=== PATIENT | female | born 1950 | race Caucasian/White ===

== ENCOUNTER 2020-05-09 20:06 | Emergency (ER) | payer MEDICARE, OTHER, SELFPAY ==
[2020-05-09 20:11] VITALS: BP 197/92; PULSE 83; RESP 16; TEMP 36.7; O2SAT 98
[2020-05-09] MEDS: TET,DIPH,PERTUSS(ACELL),VAC/PF 0.5 ML SYRINGE IM (20:41)
[2020-05-09] MEDS: LIDO 1%/SOD BICARB 8.4% (10ML) 10 ML SYRINGE INJ (20:42)
[2020-05-09] MEDS: BACITRACIN OINT 0.9 GM PCKT 1 APPLIC TOP (20:42)
[2020-05-09 21:24] VITALS: BP 139/88; PULSE 80; RESP 15; O2SAT 97
--- NOTE | 2020-05-09 21:55 | ED_ITS ---
HPI - Skin/Abscess/Foreign Bdy <HILLARY Swift - Last Filed: 05/09/20 22:04> General Chief complaint: Skin/Abscess/Foreign Body Stated complaint: cut fingers left hand Time Seen by Provider: 05/09/20 20:13 Source: patient Mode of arrival: Ambulatory Limitations: no limitations History of Present Illness HPI narrative: This is a 69-year-old female, nonsmoker, who has history of migr elsi headache, Crohn's presents to ED with significant other with chief complain of non dominant hand, left, distal finger pad of index finger deep and long laceration from metal part of bottle washer. Patient reports she has intact sensation and is able to move affected fingers without difficulty but reports active bleeding. Patient also has small laceration on 3rd finger which about 1 cm which superficial without active bleeding. Patient is unsure of last tetanus immunization. Related Data Home Medications Medication Instructions Recorded Confirmed desipramine 50 mg PO HS #0 10/29/17 mesalamine [Lialda] 2 gm PO BID #0 10/29/17 naproxen sodium [Aleve] 2 tab PO QDAYP PRN #0 10/29/17 cholecalciferol (vitamin D3) 1,000 unit PO QDAY #0 11/13/17 omega 5-kck-ccz-fish oil [Fish Oil] 1,000 units PO #0 11/13/17 Allergies Allergy/AdvReac Type Severity Reaction Status Date / Time Sulfa (Sulfonamide AdvReac Severe MAKES ME Verified 05/09/20 20:14 Antibiotics) SUPER [SULFA (SULFONAMIDE HYPER ANTIBIOTICS)] Review of Systems <HILLARY Swift - Last Filed: 05/09/20 22:04> Review of Systems Narrative: General: Denies fever, chills, fatigue, malaise, sweats. HEENT: Denies sinus pain, ear pain, sore throat, difficulty swallowing, dizziness. Respiratory: Denies dyspnea, cough, wheezing, hemoptysis, sputum. Cardiovascular: Denies chest pain, palpitations, orthopnea, edema. Gastrointestinal: Denies nausea, vomiting, abdominal pain, diarrhea, constipation, melena. : Denies dysuria, frequency, incontinence, hematuria, urinary retention. Musculoskeletal: Denies weakness, joint pain or bony pain. Skin: See HPI Neurologic: Denies weakness, headache, numbness, change in speech, confusion, seizures, incoordination. Psychiatric: No concerning psychosocial issues. 12-point review of systems is negative except for those stated above. Patient History <HILLARY Swift - Last Filed: 05/09/20 22:04> Medical History Crohn's colitis (Acute) Migraine headache (Acute) Social History Smoking Status: Never smoker Smoking Status: Never smoker alcohol intake frequency: 0-2 drinks per day Substance Use Type: does not use Exam <HILLARY Swift - Last Filed: 05/09/20 22:04> Narrative Exam Narrative: General appearance: well developed, well nourished, in no acute distress. Head: normocephalic, atraumatic, no scalp lesions, non-tender. ENT: Hearing grossly intact. Airway patent. Neck/Thyroid: neck supple, full range of motion, no visible masses or meningeal signs. No JVD, non-tender without lymphadenopathy. Skin: 3 cm deep vertical laceration with active bleeding on left index finger pad. Superficial 1 cm laceration to middle finger. Warm and dry and appropriate color for ethnicity. Heart: no clubbing, no cyanosis, no edema. Lungs: Breathing even and unlabored. No stridor. No accessory muscles used. Able to speak in full sentences. Chest: normal shape and expansion. Abdomen: non-obese, non-distended. Neurologic: alert and oriented. Cognitive exam, [employer] and PNS grossly intact on informal exam. Psych: good eye contact, normal affect. Initial Vital Signs Initial Vital Signs: Vital Signs Temperature 98.0 F 05/09/20 20:11 Pulse Rate 83 05/09/20 20:11 Respiratory Rate 16 05/09/20 20:11 Blood Pressure 197/92 H 05/09/20 20:11 Pulse Oximetry 98 05/09/20 20:11 <Cooper Tucker DO - Last Filed: 05/10/20 02:39> Initial Vital Signs Initial Vital Signs: Vital Signs Temperature 98.0 F 05/09/20 20:11 Pulse Rate 83 05/09/20 20:11 Respiratory Rate 16 05/09/20 20:11 Blood Pressure 197/92 H 05/09/20 20:11 Pulse Oximetry 98 05/09/20 20:11 Procedures <HILLARY Swift - Last Filed: 05/09/20 22:04> Laceration Repair Laceration 1: Site: hand Side (If applicable): left (index finger pad) Size (cm): 3 Description: linear Depth: simple, single layer Local Anesthetic: lidocaine 1% and with bicarb Amount of anesthesia used (mL): 2 Pre-repair: wound explored Skin layer closed with: nylon Size (cm): 5-0 Number of sutures: 4 Technique: simple, interrupted Scores <HILLARY Swift - Last Filed: 05/09/20 22:04> GCS Cit[place]ali coma scale eye opening: Spontaneous [place] coma scale verbal response: Orientated [place] coma scale motor response: Obey commands [place] coma scale total score: 15 Course <HILLARY Swift - Last Filed: 05/09/20 22:04> Orders Ordered: Discontinued Medications Bacitracin (Bacitracin) 1 applic TOP NOW ONE Stop: 05/09/20 20:29 Last Admin: 05/09/20 20:42 Dose: 1 applic Documented by: KELL Bacitracin (Bacitracin) 1 applic TOP NOW ONE Stop: 05/09/20 21:00 Diphtheria/Tetanus/Acell Pertussis (Adacel) 0.5 ml IM .ONCE ONE Stop: 05/09/20 20:16 Last Admin: 05/09/20 20:41 Dose: 0.5 ml Documented by: KELL Lidocaine/Sodium Bicarbonate (Buffered Lidocaine 10 Ml Syr) 10 ml INJ NOW ONE Stop: 05/09/20 20:29 Last Admin: 05/09/20 20:42 Dose: 10 ml Documented by: KELL Vital Signs Vital signs: Vital Signs - 8 hr 05/09/20 20:11 05/09/20 21:24 Temperature 98.0 F Pulse Rate 83 80 Respiratory Rate 16 15 Blood Pressure 197/92 H 139/88 Pulse Oximetry 98 97 <Cooper Tucker DO - Last Filed: 05/10/20 02:39> Orders Ordered: Discontinued Medications Bacitracin (Bacitracin) 1 applic TOP NOW ONE Stop: 05/09/20 20:29 Last Admin: 05/09/20 20:42 Dose: 1 applic Documented by: KELL Bacitracin (Bacitracin) 1 applic TOP NOW ONE Stop: 05/09/20 21:00 Diphtheria/Tetanus/Acell Pertussis (Adacel) 0.5 ml IM .ONCE ONE Stop: 05/09/20 20:16 Last Admin: 05/09/20 20:41 Dose: 0.5 ml Documented by: KELL Lidocaine/Sodium Bicarbonate (Buffered Lidocaine 10 Ml Syr) 10 ml INJ NOW ONE Stop: 05/09/20 20:29 Last Admin: 05/09/20 20:42 Dose: 10 ml Documented by: KELL Vital Signs Vital signs: Vital Signs - 8 hr 05/09/20 20:11 05/09/20 21:24 Temperature 98.0 F Pulse Rate 83 80 Respiratory Rate 16 15 Blood Pressure 197/92 H 139/88 Pulse Oximetry 98 97 MDM - Skin/Abscess/Foreign Bdy <HILLARY Swift - Last Filed: 05/09/20 22:04> Differential Diagnosis Differential diagnosis: Likely other (Laceration) Medical Records Attestation: I reviewed the patient's medical records. MDM Narrative Medical decision making narrative: Non dominant hand left index finger pad laceration was repaired with 4 sutures. Please see procedural note. Physical exam is not consistent with fracture. She has intact sensation, is able to move finger against resistance. Brisk cap refill. No obvious foreign body appreciated. Tdap vaccination has been updated today. Discussed home wound care, wound recheck in 2 days and suture removal in 7-10 days discussed with patient and she verbalized understanding in agreement with treatment plan. Discharge Plan Departure Patient Disposition: Home Clinical Impression: Finger laceration Qualifiers: Encounter type: initial encounter Finger: index finger Damage to nail status: without damage Foreign body presence: without foreign body Laterality: left Qualified Code(s): S61.211A - Laceration without foreign body of left index finger without damage to nail, initial encounter Discharge Date/Time: 05/09/20 21:25 Instructions: DI for Laceration Repair Activity Restrictions/Additional Instructions: You have been diagnosed with [finger laceration on index and middle finger from a metal of bottle washer. Index finger laceration was repaired with 4 sutures. Tetanus immunization has been updated today.]. What to do: *Take your medications as directed. You can take dwjg-wot-hmccxuk Tylenol and or Motrin as needed for discomfort. Please do not get your wound soaked in the water until suture removal. Keep your dressing intact for next 24 hrs. After then, you could remove your dressing, wash with soap and water. Pat dry with clean paper towel and dress it with antibiotic ointment. You can change dressing as needed and daily. Please monitor for signs and symptoms for infection such as increasing redness, swelling, warmth, pain, fever, purulent discharge. If this occurs, please return to ED or follow up with your primary care physician since your wound may be gotten infected. Please follow up with your primary care provider in 2-3 days for recheck wound. Your suture should be removed [ 7-10 ] days. This can be done by your primary provider, walk-in clinic or here in ED. Please keep your wound clean, dry and intact all times. Prescriptions: No Action desipramine 50 MG tablet 50 mg PO HS Qty: 0 RF: 0 mesalamine [Lialda] 1.2 GM tablet,delayed release (DR/EC) 2 gm PO BID Qty: 0 RF: 0 naproxen sodium [Aleve] 220 MG tablet 2 tab PO QDAYP PRNQty: 0 RF: 0 omega 9-bdr-xli-fish oil [Fish Oil] 1,000 MG capsule 1,000 units PO Qty: 0 RF: 0 cholecalciferol (vitamin D3) 5,000 UNIT capsule 1,000 unit PO QDAY Qty: 0 RF: 0 Referrals: Anthony Alonso DO [Non-Staff] - <Cooper Tucker DO - Last Filed: 05/10/20 02:39> Cosign ED Attending Hananeature Attestation: I was immediately available in the department for consultation. This documentation has been reviewed and I agree with assessment and plan. Supervised by Cooper Tucker DO
== END 2020-05-09 21:25 | disposition home or self-care (01) ==
PROVIDERS: Emergency Provider Nurse Practitioner Family; Family Provider Family Medicine; PCP Family Medicine
DX: S61.211A Laceration without foreign body of left index finger without damage to nail, initial encounter (principal); W26.8XXA Contact with other sharp object(s), not elsewhere classified, initial encounter; Z23 Encounter for immunization
CPT/HCPCS: 12002; 90471; 99283; 90715

== ENCOUNTER 2021-06-09 01:39 | Observation (INO) | payer MEDICARE, OTHER, SELFPAY ==
[2021-06-09] VITALS (12 sets, daily range): BP systolic 137–176; BP diastolic 76–95; PULSE 69–83; RESP 15–25; TEMP 35.9–36.6; O2SAT 94–99; BMI 39.4; BMI 39.3
--- NOTE | 2021-06-09 01:55 | DI.CT.S_ITS ---
PROCEDURE: CT HEAD/BRAIN WO CON INDICATIONS: right sided tingling now resolved TECHNIQUE: Noncontrast 4.5 mm thick angled axial sections acquired from the foramen magnum to the vertex, with coronal and sagittal reformats. For radiation dose reduction, the following was used: automated exposure control, adjustment of mA and/or kV according to patient size. COMPARISON: None. FINDINGS: Image quality: Excellent. CSF spaces: Basal cisterns are patent. No extra-axial fluid collections. The ventricles are symmetric in size and shape. Brain: No intracranial bleeds or masses. There is cerebral volume loss for age, with resultant ventricular and sulcal prominence. There are periventricular and deep white matter chronic small vessel ischemic changes. There is intracranial internal carotid artery atherosclerosis. Skull and face: Calvarium and visualized facial bones appear intact, without suspicious lesions. Sinuses: Visualized sinuses and mastoids are clear. IMPRESSION: 1. No acute intracranial process. 2. Moderate atrophy and chronic microvascular ischemic changes. The above findings are concordant with preliminary report. Dictated by: Rachel Whitlock M.D. on 06/09/2021 at 7:44 Approved by: Rachel Whitlock M.D. on 06/09/2021 at 7:45
[2021-06-09 02:14] LABS: Add Manual Diff / Slide Review NO; Basophils Absolute Auto 100 /uL (0-100); Basophils Percent Auto 0.7 % (0-2); Eosinophils Absolute Auto 100 /uL (0-450); Eosinophils Percent Auto 1.3 % (2-4); Hematocrit 42.5 % (36-46); Hemoglobin 13.9 g/dL (12.0-16.0); Lymphocytes Absolute Auto 1900 /uL (1100-4500); Lymphocytes Percent Auto 17.4 % (25-40); Mean Corpuscular HGB Conc 32.6 % (30-36); Mean Corpuscular Hemoglobin 27.1 PG (26-34); Mean Corpuscular Volume 82.9 fL (80-100); Monocytes Absolute Auto 700 /uL (0-900); Monocytes Percent Auto 6.7 % (3-14); Neutrophils Absolute Auto 8200 /uL (1500-7000); Neutrophils Percent Auto 73.9 % (50-75); Platelet Count 264 X10^3/uL (150-400); Red Blood Cell Count 5.12 X10^6/uL (4.0-5.2); Red Cell Distribution Width 15.5 % (11.6-14.8); White Blood Cell Count 11.1 X10^3/uL (4.5-11.0)
[2021-06-09 02:26] LABS: Alanine Aminotransferase 17 IU/L (<35); Albumin 4.2 g/dL (3.5-5.0); Albumin Globulin Ratio 1.6 (1.0-2.8); Alkaline Phosphatase 142 U/L (38-126); Aspartate Aminotransferase 19 IU/L (14-36); BUN Creatinine Ratio 33.3 (6-22); Bilirubin Total 0.3 mg/dL (0.2-1.3); Blood Urea Nitrogen 18 mg/dL (7-17); Calcium 9.4 mg/dL (8.4-10.2); Carbon Dioxide 27 mmol/L (22-32); Chloride 107 mmol/L (98-107); Creatine Kinase 61 U/L (30-135); Estimated Glomerular Filt Rate > 60.0 mL/min (>60); Globulin 2.6 g/dL (1.7-4.1); Glucose 98 mg/dL (80-110); HEMOLYSIS < 15 (0-50); Potassium 3.8 mmol/L (3.4-5.1); Sodium 141 mmol/L (137-145); Total Protein 6.8 g/dL (6.3-8.2)
[2021-06-09 02:38] LABS: Troponin I < 0.012 ng/mL (0.01-0.034)
--- NOTE | 2021-06-09 02:58 | ED_ITS ---
HPI - Neuro Symptoms/Deficit General Chief Complaint: Neuro Symptoms/Deficit Stated Complaint: numbness/tingling right side/head/ arm Time Seen by Provider: 06/09/21 01:48 Source: patient and family Mode of arrival: Ambulatory Limitations: no limitations History of Present Illness HPI Narrative: Patient is a 70-year-old female history of migraine headache in Crohn's disease presenting today with 2 episodes of right-sided numbness and tingling. She said she had a 1st episode will getting her hair cut around noon today. It lasted for about 30 minutes. It then went away this evening. She was sitting watching TV full thing her computer and getting ready to go to bed when she noticed she again had right-sided numbness and tingling. She says both times it starts on her face then goes down including her arm. She does not have any weakness. No visual changes. She denies headache. She has says this is ce rtainly not typical of her migraines. She has no chest pain or palpitations. No difficulty walking. Symptoms have now resolved. No previous history of TIAs. On Anticoagulants: No Related Data Home Medications Medication Instructions Recorded Confirmed desipramine 50 mg tablet 50 mg PO HS #0 10/29/17 mesalamine 1.2 gram tablet,delayed 2 gm PO BID #0 10/29/17 release (Lialda) naproxen sodium 220 mg tablet 2 tab PO QDAYP PRN #0 10/29/17 (Aleve) cholecalciferol (vitamin D3) 125 1,000 unit PO QDAY #0 11/13/17 mcg (5,000 unit) capsule omega 5-dus-jfj-fish oil 1,000 mg 1,000 units PO #0 11/13/17 (120 mg-180 mg) capsule (Fish Oil) Allergies Allergy/AdvReac Type Severity Reaction Status Date / Time Sulfa (Sulfonamide AdvReac Severe MAKES ME Verified 05/09/20 20:14 Antibiotics) SUPER [SULFA (SULFONAMIDE HYPER ANTIBIOTICS)] Review of Systems Review of Systems Narrative: GENERAL: Denies chills, fatigue, malaise, fever, sweats, travel HEENT: Denies sinus pain, ear pain, sore throat, difficulty swallowing, neck pain RESPIRATORY: Denies dyspnea, cough, wheezing, hemoptysis, sputum. CARDIOVASCULAR: Denies chest pain, palpitations, orthopnea, edema GASTROINTESTINAL: Denies nausea, vomiting, abdominal pain, diarrhea, constipat ion, melena. : Denies dysuria, frequency, incontinence, hematuria, urinary retention, flank pain. MUSCULOSKELETAL: Denies weakness, joint pain, or bony pain SKIN: No rash, no erythema, no pruritus NEUROLOGIC: See HPI PSYCHIATRIC: No concerning psychosocial issues. 12 point review of systems is negative except for those stated above and HPI Hematologic/Lymphatic On Anticoagulants: No Patient History Medical History (Updated 06/09/21 @ 03:24 by Kimberley Tarango DO) Crohn's colitis Migraine headache Social History Smoking Status: Never smoker Smoking Status: Never smoker alcohol intake frequency: a few times a week Substance Use Type: does not use Exam Initial Vital Signs Initial Vital Signs: Vital Signs Temperature 98 F 06/09/21 01:45 Pulse Rate 83 06/09/21 01:45 Respiratory Rate 15 06/09/21 01:45 Blood Pressure 151/88 H 06/09/21 01:45 Pulse Oximetry 97 06/09/21 01:45 GENERAL: Alert well-appearing 70-year-old female in no acute distress. HEENT: Head atraumatic,EOMI, pupils reactive, face symmetric, moist mucous membr anes CARDIOVASCULAR: Regular rate and rhythm without murmurs, rubs or gallops. RESPIRATORY: Breath sounds equal bilaterally, no wheezes rales or rhonchi. ABDOMEN: Soft, nontender. Normoactive bowel sounds all 4 quadrants. No guarding or rebound. EXTREMITIES: Normal range of motion, no clubbing or edema. Neurovascularly intact NEUROLOGICAL: Alert and oriented x4.Normal gait and speech. Cranial nerves II through XII grossly intact. Good fkhybe-zv-bcnk, good alkn-ms-jyor, strength equal bilaterally, no dysarthria or aphasia, sensation in tact to soft touch bilaterally, no visual changes, no facial droop SKIN: Warm, dry, no laceration, no petechiae, no rashes or lesions. Scores NIH Stroke Scale Level of Conciousness: Alert, keenly responsive Ask month/age: Answers both questions correctly. Open/close eyes, close hand: Performs both tasks correctly Best gaze horizontal: Normal Visual olivera: No visual loss Facial palsy: Normal symetrical movement Left arm drift: No drift for full 10 sec Right arm drift: No drift for full 10 sec Left leg drift: No drift for full 5 sec Right leg drift: No drift for full 5 sec Limb ataxia: Absent Sensory on face/arms/legs: Normal, no sensory loss Best language: No aphasia, normal Dysarthria: Normal Extinction or inattention: No abnormality Total NIH Stroke scale score: 0 Course Orders Ordered: ED Orders 06/09/21 01:55 CT head/brain wo con Stat EKG-12 Lead Stat 06/09/21 02:05 Complete Blood Count AUTO DIFF Stat Comprehensive Metabolic Panel Stat Troponin & CK Cardiac Panel Stat 06/09/21 03:15 COVID19 - ADMIT (SOCIAL WORK THERAPIST swab/PCR) Stat Acetaminophen (Acetaminophen 325 Mg Tablet) 650 mg PO Q6HR PRN PRN Reason: Fever/Mild Pain (1-3) Aspirin (Aspirin Ec 81 Mg Tablet) 81 mg PO DAILY LESLI Atorvastatin Calcium (Atorvastatin 20 Mg Tablet) 20 mg PO BEDTIME LESLI Clopidogrel Bisulfate (Clopidogrel 75 Mg Tablet) 75 mg PO DAILY LESLI Naloxone HCl (Naloxone 0.4 Mg/Ml Vial) 0.2 mg IV Q2MIN PRN PRN Reason: Opiate Reversal Discontinued Medications Aspirin (Aspirin 81 Mg Chew Tab) 324 mg PO NOW ONE Stop: 06/09/21 02:59 Last Admin: 06/09/21 03:10 Dose: 324 mg Documented by: MARIANO Vital Signs Vital signs: Vital Signs - 8 hr 06/09/21 01:45 06/09/21 02:24 06/09/21 02:30 Temperature 98 F Pulse Rate 83 75 71 Respiratory Rate 15 23 16 Blood Pressure 151/88 H 151/80 H 137/76 Pulse Oximetry 97 99 95 06/09/21 03:00 Temperature Pulse Rate 72 Respiratory Rate 24 Blood Pressure 141/80 H Pulse Oximetry 94 MDM - Neuro Symptoms/Deficit Lab Data Result diagrams: 06/09/21 02:05 06/09/21 02:05 Labs: Lab Results 06/09/21 06/09/21 Range/Units 02:05 02:05 WBC 11.1 H (4.5-11.0) X10^3/uL RBC 5.12 (4.0-5.2) X10^6/uL Hgb 13.9 (12.0-16.0) g/dL Hct 42.5 (36-46) % MCV 82.9 (80-100) fL MCH 27.1 (26-34) PG MCHC 32.6 (30-36) % RDW 15.5 H (11.6-14.8) % Plt Count 264 (150-400) X10^3/uL Neut % (Auto) 73.9 (50-75) % Lymph % (Auto) 17.4 L (25-40) % [place] % (Auto) 6.7 (3-14) % Eos % (Auto) 1.3 L (2-4) % Baso % (Auto) 0.7 (0-2) % Neut # (Auto) 8200 H (2481-5469) /uL Lymph # (Auto) 1900 (2226-4303) /uL [place] # (Auto) 700 (0-900) /uL Eos # (Auto) 100 (0-450) /uL Baso # (Auto) 100 (0-100) /uL Sodium 141 (137-145) mmol/L Potassium 3.8 (3.4-5.1) mmol/L Chloride 107 (98-107) mmol/L Carbon Dioxide 27 (22-32) mmol/L BUN 18 H (7-17) mg/dL Creatinine 0.54 (0.52-1.04) mg/dL Estimated GFR > 60.0 (>60) mL/min BUN/Creatinine Ratio 33.3 H (6-22) Glucose 98 (80-110) mg/dL Calcium 9.4 (8.4-10.2) mg/dL Total Bilirubin 0.3 (0.2-1.3) mg/dL AST 19 (14-36) IU/L ALT 17 (<35) IU/L Alkaline Phosphatase 142 H (38-126) U/L Total Creatine Kinase 61 (30-135) U/L CK-MB (CK-2) TNP CK-MB (CK-2) Rel Index TNP Troponin I < 0.012 (0.01-0.034) ng/mL Total Protein 6.8 (6.3-8.2) g/dL Albumin 4.2 (3.5-5.0) g/dL Globulin 2.6 (1.7-4.1) g/dL Albumin/Globulin Ratio 1.6 (1.0-2.8) Urine Dip Bedside Urine Glucose Negative Bedside Urine Bilirubin - Negative Bedside Urine Ketone - Negative Urine Specific [place] 1.015 Bedside Urine Occult Blood - Negative Bedside Urine pH 6.0 Bedside Urine Protein - Negative Bedside Urine Urobilinogen - Negative Bedside Urine Nitrite - Negative Bedside Urine Leukocytes - Negative Esterase ECG Data Interpretation: Normal sinus Rhythm rate 72 OK interval 164 QRS [address] changes MDM Narrative Medical decision making narrative: Patient has had 2 episodes today of right- sided numbness and tingling resolving after 30 minutes. Concern for TIA. No prior history of TIAs or CVA. Her NIH is 0 and initial workup in ED is 0. Recommend admission to hospital for further workup. Sarmad updated patient's symptoms test results and happily accepts Discharge Plan Departure Patient Disposition: Admitted as Observation Clinical Impression: Transient cerebral ischemia Qualifiers: Transient cerebral ischemia type: other Qualified Code(s): G45.8 - Other tr ansient cerebral ischemic attacks and related syndromes Admit Date/Time: 06/09/21 03:24 Admit Provider: Gabbi Bañuelos
[2021-06-09] MEDS: ASPIRIN 81 MG CHEW TAB 324 MG PO (03:10)
--- NOTE | 2021-06-09 03:27 | DI.MRI.S_ITS ---
PROCEDURE: MR STROKE Pre- and post-contrast brain MRI, non-contrast brain MR angiogram, pre- and postcontrast neck MR angiogram INDICATIONS: TIA TECHNIQUE: Brain: Noncontrast axial T1 spin echo, axial T2 fast spin echo, sagittal and axial FLAIR, coronal T2 fast spin echo, axial gradient echo, axial diffusion and ADC through the brain. After the administration of contrast, axial 3D VIBE of the cranial vasculature and brain. Brain MRA: Non-contrast 3-D time of flight MR angiogram, with multiple vwkmbta-ochdhkvsy-geovwvnpmq (MIP) reformats performed. Neck MRA: Axial and sagittal TruFISP through the neck. Coronal dynamic MR angiogram during administration of contrast in the arterial and venous phases, with 3-dimenstional jxhstrb-vnjderzzp-seztuzediy (MIP) reformats constructed from subtraction images. COMPARISON: [facility], CT, CT HEAD/BRAIN WO CON, 06/09/2021, 2:00. FINDINGS: Image quality: Excellent. BRAIN: CSF spaces: Ventricles are normal in size and shape. Basal cisterns are patent. No extra-axial fluid collections. Brain: No intracranial bleeds or mass effects. Neil-white matter interface is normal. Diffusion weighted images show no acute ischemic insults. Mild small vessel ischemic change, within normal limits for patient age. Brainstem appears normal. Normal intravascular flow voids are present. No abnormal intracranial enhancement. Skull and face: Calvarial marrow signal is normal. Orbits appear normal. Sinuses: Minimal dependent tissue in the maxillary sinuses bilaterally. The other paranasal sinuses and mastoids are clear. BRAIN MR ANGIOGRAM: Anterior circulation: Intracranial internal carotid arteries are normal in size and enhancement. The flow within the paired anterior cerebral arteries is normal and symmetric. The flow within the middle cerebral arteries is normal and symmetric. The anterior communicating artery is seen. No stenoses, occlusions, or aneurysms. Posterior circulation: Normal variant origin of the right posterior cerebral artery off the anterior circulation. The visualized portions of the vertebral arteries demonstrate normal caliber, and join to form a normal appearing basilar artery. The flow within the posterior cerebral arteries is normal and symmetric. No stenoses, occlusions, or aneurysms. NECK MR ANGIOGRAM: Carotids: Great vessels demonstrate a conventional anatomy as they arise from the aortic arch. The origins of the common carotid arteries appear patent. The calibers and courses of both common carotid arteries are normal. The bifurcation regions appear normal bilaterally. The internal carotid arteries demonstrate normal course and caliber. Posterior circulation: The origins of the vertebral arteries appear patent. More superior portions of both vertebral arteries demonstrate normal course and caliber, and join to form a normal appearing basilar artery. Miscellaneous: Subclavian arteries appear patent. Pre-contrast images through the neck show no soft tissue abnormalities. IMPRESSION: BRAIN MRI: Unremarkable for patient age. Mild small vessel ischemic change. No evidence acute stroke, hemorrhage, or mass. BRAIN MR ANGIOGRAM: No stenosis, aneurysm, occlusion, or filling defect. NECK MR ANGIOGRAM: Widely patent carotids. Otherwise unremarkable. Dictated by: Aguilar Rangel M.D. on 06/09/2021 at 10:37 Approved by: Aguilar Rangel M.D. on 06/09/2021 at 10:46
--- NOTE | 2021-06-09 03:34 | PM.HP.1 ---
History of Present Illness History of Present Illness Date Patient Seen: 06/09/21 Time Patient Seen: 03:34 Chief complaint: numbness/tingling right side/head/ arm Narrative: Patient is a 70-year-old female Ina Moreno with a history of migraine headaches and Crohn's disease presented today with 2 episodes of right-sided facial numbness and tingling that radiated into her right arm.? She said she had a 1st episode will getting her hair cut around noon yesterday.? It lasted for about 30 minutes.? 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 She says both times it starts on her face then radiated into her right arm.? She denies weakness, visual changes, difficulty swallowing, altered speach, or headache.? She has says this is certainly not typical of her migraines.? She denies chest pain, palpitations shortness of breath, abdominal pain, loss of consciousness, recent illness injury or trauma. No difficulty walking.? Symptoms have now resolved.? No previous history of TIAs, stroke , or heart attack. Upon admit patient's vitals are stable temp 98?, BP 151/80, HR 75, RR 23, O2 saturation 99% on room air. Patient has a mild bump and her WBC 11.1, neutrophils 8200, chemistries are all within normal limits only a mild elevation in alk-phos 142. NIH score: 0 personally reviewed EKG normal sinus rhythm with a ventricular rate of [address] or T-wave changes. Patient's head CT demonstrated no acute intracranial processes at this time. Patient admitted for TIA Patient History Medical History Crohn's colitis Migraine headache Surgical History (Updated 06/09/21 @ 04:33 by RODDY Peter) History of knee replacement Family & Social History Family History Mother Crohn's disease Father Cancer Safety & Behavioral: Feels Safe in Current Yes, retired lives with her spouse Environment Tobacco & Substance use: Smoking Status Never smoker alcohol intake frequency occasionally, a few times a week Substance Use Type does not use Meds Home Medications and Allergies Home Medications Medication Instructions Recorded Confirmed Type desipramine 50 mg tablet 50 mg PO HS #0 10/29/17 History cholecalciferol (vitamin D3) 125 1,000 unit PO QDAY #0 11/13/17 History mcg (5,000 unit) capsule omega 0-bcp-apn-fish oil 1,000 mg 1,000 units PO #0 11/13/17 History (120 mg-180 mg) capsule (Fish Oil) budesonide 3 mg 9 mg PO DAILY 06/09/21 06/09/21 History capsule,delayed,extended release pantoprazole 40 mg tablet,delayed 40 mg PO DAILY 06/09/21 06/09/21 History release Allergies Allergy/AdvReac Type Severity Reaction Status Date / Time Sulfa (Sulfonamide AdvReac Severe MAKES ME Verified 05/09/20 20:14 Antibiotics) SUPER [SULFA (SULFONAMIDE HYPER ANTIBIOTICS)] Review of Systems Review of Systems Narrative: All 12 point systems reviewed with the patient and are negative except otherwise documented. Exam Vital Signs (past 8 hours): - 06/09/21 01:45 06/09/21 02:24 06/09/21 02:30 Temperature 98 F Pulse Rate 83 75 71 Respiratory Rate 15 23 16 Blood Pressure 151/88 H 151/80 H 137/76 Pulse Oximetry 97 99 95 06/09/21 03:00 06/09/21 03:30 Temperature Pulse Rate 72 69 Respiratory Rate 24 25 H Blood Pressure 141/80 H 140/89 Pulse Oximetry 94 94 Oxygen Delivery Method Room Air Narrative Exam Narrative: General: Patient is a well-developed, well-nourished in no distress at this time. HEENT: Normocephalic, atraumatic, extraocular muscles intact, oral pharynx is clear and mucous membranes are moist. Neck is supple and symmetric, trachea is midline, no adenopathy, no thyroid enlargement, nontender, no masses palpated. Negative for JVD Chest: Normal AP diameter and contour without kyphoscoliosis, no nasal flaring, retractions, or tachypneic labored Lungs: Auscultation of all lung olivera are clear without adventitious sounds, wheezes, rhonchi, or rales. Cardio: S1 & S2 with regular rate and rhythm without murmur, rubs, or gallops, no carotid bruit, no cardiac pulsations present. Abdomen: Soft nontender, negative for organomegaly, or masses. Bowel sounds are present in all 4 quadrants without guarding or rebound, no CVA tenderness. Musculoskeletal: Muscle strength and tone are equal within normal limits, no deformity, crepitus, effusions, cyanosis, clubbing or edema present. Full range of motion intact radial and pedal pulses are normal. Skin: Warm dry and intact without rashes, ulcerations or petechiae. Neuro: Alert and orientated x3, strength is +5/5 in all extremities, sensation to touch intact, no gross deficits noted of cranial nerves.NIH:0 Psych: Patient has a well-kept appearance, appropriate affect, mental status attitude thought context and judgment are appropriate for age. Objective Labs Result Diagrams: 06/09/21 02:05 06/09/21 02:05 Labs: Laboratory Results - last 24 hr 06/09/21 06/09/21 02:05 02:05 WBC 11.1 H RBC 5.12 Hgb 13.9 Hct 42.5 MCV 82.9 MCH 27.1 MCHC 32.6 RDW 15.5 H Plt Count 264 Neut % (Auto) 73.9 Lymph % (Auto) 17.4 L [place] % (Auto) 6.7 Eos % (Auto) 1.3 L Baso % (Auto) 0.7 Neut # (Auto) 8200 H Lymph # (Auto) 1900 [place] # (Auto) 700 Eos # (Auto) 100 Baso # (Auto) 100 Sodium 141 Potassium 3.8 Chloride 107 Carbon Dioxide 27 BUN 18 H Creatinine 0.54 Estimated GFR > 60.0 BUN/Creatinine Ratio 33.3 H Glucose 98 Calcium 9.4 Total Bilirubin 0.3 AST 19 ALT 17 Alkaline Phosphatase 142 H Total Creatine Kinase 61 CK-MB (CK-2) TNP CK-MB (CK-2) Rel Index TNP Troponin I < 0.012 Total Protein 6.8 Albumin 4.2 Globulin 2.6 Albumin/Globulin Ratio 1.6 Assessment & Plan Assessment & Plan narrative: Patient is a 70-year-old female Ina moreno with history of Crohn's disease and migraines who presented to the ED with 2 episodes lasting approximately 30 minutes of right-sided facial numbness and tingling that radiated down into the right arm, resolving prior to hospitalization. Patient admitted for TIA, stroke rule out. 1. Neurological deficit (right-sided facial & arm- numbness/tingling), TIA transient, acute, present on admission - WBC 11.1, neutrophils 8200, alk-phos 142. NIH score: 0 -I personally reviewed EKG normal sinus rhythm with a ventricular rate of [address] or T-wave changes. -Head CT demonstrated no acute intracranial processes at this time. -differential diagnosis TIA, hemorrhagic vs ischemic stroke, intracranial hemorrhage, subdural hematoma, epidural hematoma, seizure, brain tumor, migraine, vertigo, hypoglycemia, Lou Fitzgerald syndrome, multiple sclerosis, aortic dissection -TIA , but based on patient/family history and presentation I have a higher suspicion for migraine (sporadic or familial hemiplegic migraine). -patient placed on Plavix 75 mg, ASA 81 mg, Lipitor 20 mg -MR ordered for later today. -recommend neurology follow-up for further evaluation regarding migraines. 2. Crohn's disease, chronic, present on admission -continue patient's budesonide 3. Migraines, chronic, present on admission -continue patient's despramine 4. Obesity as evidence by BMI of 39.5, acute on chronic, present on admission -consideration will be given for dietary counseling. Code status: Full Surrogate decision maker: Lazaroaguila Moreno -Spouse COVID PCR:negative COVID vaccination: Moderna October 2020 DVT/VTE prophylaxis: SCDs only Disposition: Admitted for observation expected length of stay less than 2 midnights. I have utilized all available immediate resources to obtain, update, or review the patient's current medications. I confirmed that the patient's advanced care plan is present, Code status is documented and/or surrogate decision maker is listed in the patient's medical record. Time Spent With Patient Critical Care time: I spent a total of [] minutes of critical care time on this patient's care today; this time is exclusive of procedural time. Scores GCS [place] coma scale eye opening: Spontaneous [place] coma scale verbal response: Orientated [place] coma scale motor response: Obey commands [place]ali coma scale total score: 15 NIHSS Level of Conciousness: Alert, keenly responsive Ask month/age: Answers both questions correctly. Open/close eyes, close hand: Performs both tasks correctly Best gaze horizontal: Normal Visual olivera: No visual loss Facial palsy: Normal symetrical movement Left arm drift: No drift for full 10 sec Right arm drift: No drift for full 10 sec Left leg drift: No drift for full 5 sec Right leg drift: No drift for full 5 sec Limb ataxia: Absent Sensory on face/arms/legs: Normal, no sensory loss Best language: No aphasia, normal Dysarthria: Normal Extinction or inattention: No abnormality Total NIH Stroke scale score: 0 Wells' Criteria for PE Clinical signs and symptoms of DVT: No PE is #1 Dx or equally likely: No Heart rate > 100: No Immobilization at least 3 days or surg in previous 4 weeks: No History of PE or DVT: No Hemoptysis: No Malignancy w/Treatment within 6 months or palliative: No Wells' PE Score total: 0
[2021-06-09 04:12] LABS: COVID19 - ADMIT (NP swab/PCR) Negative (Negative)
[2021-06-09 05:19] LABS: Add Manual Diff / Slide Review NO; Basophils Absolute Auto 0 /uL (0-100); Basophils Percent Auto 0.4 % (0-2); Eosinophils Absolute Auto 200 /uL (0-450); Eosinophils Percent Auto 1.7 % (2-4); Hematocrit 43.3 % (36-46); Hemoglobin 14.1 g/dL (12.0-16.0); Lymphocytes Absolute Auto 1900 /uL (1100-4500); Lymphocytes Percent Auto 18.1 % (25-40); Mean Corpuscular HGB Conc 32.6 % (30-36); Mean Corpuscular Hemoglobin 27.1 PG (26-34); Mean Corpuscular Volume 83.1 fL (80-100); Monocytes Absolute Auto 600 /uL (0-900); Monocytes Percent Auto 5.9 % (3-14); Neutrophils Absolute Auto 7900 /uL (1500-7000); Neutrophils Percent Auto 73.9 % (50-75); Platelet Count 254 X10^3/uL (150-400); Red Blood Cell Count 5.21 X10^6/uL (4.0-5.2); Red Cell Distribution Width 15.3 % (11.6-14.8); White Blood Cell Count 10.7 X10^3/uL (4.5-11.0)
[2021-06-09 05:26] LABS: Prothrombin Time 10.6 SECONDS (10.1-12.7)
[2021-06-09 05:32] LABS: Cholesterol 173 mg/dL (140-199); HDL Cholesterol 54 mg/dL (40-60); LDL Cholesterol Calculated 105 mg/dL (<100); Triglycerides 71 mg/dL (35-150)
[2021-06-09 05:40] LABS: NT-proBNP (BNP-Adult 18+) 107 pg/mL (<125)
--- NOTE | 2021-06-09 07:35 | DI.ECHO.S_ITS ---
[facility] +---------+ : : [address] : : : : [id number] : : : : Phone: [phone]+ Echocardiogram Report + + :Name: FINN PAREKH Study Date: 06/09/2021 Height: 64 in : :[facility] ReadingLocation: Weight: 229 lb : : Gender: Female BSA: 2.1 m2 : :: 1950 Age: 70 yrs BP: 140/89 mmHg: :Reason For Study: TIA : :Ordering Physician: ALONA, : :CASTILLO Performed By: Tiffanie Villaseñor : :Referring: CASTILLO SAGE : + + Interpretation Summary 1) Normal left ventricular thickness, size, wall motion, and systolic function (EF 60-65%). 2) Normal right ventricular size and function. 3) Diastolic parameters suggest a pseudonormalization pattern, consistent with probable elevated filling pressures. 4) There is mild aortic regurgitation. 5) A patent foramen ovale is suspected based on color doppler. 6) No prior Echo available for comparison. Procedure: A two-dimensional transthoracic echocardiogram with color flow and Doppler was performed. The study quality was technically adequate. There is no prior echocardiogram noted for this patient. The patient was in sinus rhythm with heart rates between 75-81 bpm during the exam. Left Ventricle: The left ventricle is normal in size and wall thickness. The ejection fraction is estimated to be 55-60%. Left ventricular systolic function appears normal without focal wall motion abnormalities. Diastolic parameters suggest a pseudonormalization pattern, consistent with probable elevated filling pressures. Right Ventricle: The right ventricle is normal in size and function. Atria: The left atrium is moderately dilated. Right atrial size is normal. A patent foramen ovale is suspected. Mitral Valve: The mitral valve leaflets appear mildly thickened, but open well. There is mild to moderate mitral annular calcification. There is mild to moderate mitral regurgitation. Aortic Valve: The aortic valve is trileaflet. The aortic valve opens well. There is no aortic valve stenosis. There is mild aortic regurgitation. Tricuspid Valve: The tricuspid valve is normal in structure and function. There is mild tricuspid regurgitation. The right ventricular systolic pressure is estimated to be at least 30 mmHg based on an estimated right atrial pressure of 3 mm Hg. Pulmonic Valve: The pulmonic valve leaflets are thin and pliable; valve motion is normal. There is trace pulmonic regurgitation. Great Vessels: The aortic root is normal size. The ascending aorta is at the upper limits of normal in size. The IVC is of normal diameter and collapses greater than 50% with a sniff. This suggests a low right atrial pressure of 3 mm Hg. Pericardium/ Pleura There is no pericardial effusion. There is no pleural effusion. MMode/2D Measurements & Calculations LVIDd: 5.1 cm LVOT diam: 1.9 cm LVIDs: 3.3 cm Ao root diam: 3.4 cm FS: 34.3 % asc Aorta Diam: 3.9 cm IVSd: 1.1 cm LVPWd: 1.2 cm LV alejandro. diameter/BSA (cm/m^2): 2.4 LV sys. diameter/BSA (cm/m^2): 1.6 LA A2 area: 26.4 cm2 RA long axis: 5.2 cm LA A4 area: 27.2 cm2 RA area: 13.7 cm2 LA length (vol): 6.5 cm RA vol: 30.5 ml LA vol: 93.7 ml RA : 14.7 ml/m2 LA vol index: 45.2 ml/m2 IVC diam: 1.9 cm RVD1 (basal): 3.8 cm TAPSE: 2.5 cm Doppler Measurements & Calculations Ao V2 max: 147.5 cm/sec LVOT Max Derek: 90.5 cm/sec Ao V2 mean: 110.5 cm/sec LV V1 max P.3 mmHg Ao max P.7 mmHg LV V1 VTI: 19.1 cm Ao mean P.2 mmHg BRIAN(I,D): 1.6 cm2 Ao V2 VTI: 31.9 cm BRIAN(V,D): 1.7 cm2 sev ratio: 0.60 BRIAN indexed to BSA (cm^2/m^2): 0.79 AI P1/2t: 352.3 msec AI dec slope: 335.2 cm/sec2 MV E max derek: 120.5 cm/sec TR max derek: 259.6 cm/sec MV A max derek: 142.4 cm/sec TR max P.9 mmHg MV E/A: 0.85 PA V2 max: 74.7 cm/sec Med Peak E' Derek: 5.1 cm/sec PA V2 mean: 51.8 cm/sec E/E' med: 23.6 PA mean P.2 mmHg Lat Peak E' Derek: 7.1 cm/sec PA pr(Accel): 39.6 mmHg E/E' lat: 17.0 E/e' average: 20.3 MV dec time: 0.23 sec SV(OT): 51.9 ml Reading Physician:12:41 PM
--- NOTE | 2021-06-09 08:29 | PC.NURSE ---
Patient up to chair for breakfast, denies chest pain, numbness or tingling in extremities, dizziness or lightheadedness. Does endorse feeling a heaviness on R side of face, sensation equal bilaterally and symmetry intact. VSS, HR regularly irregular, tele on, BS active x 4, denies N/V. Saline locked. SCD's removed for transfer to chair, patient requests they remain off at this time. Call light in reach. Patient verbalizes understanding to call before getting OOB.
--- NOTE | 2021-06-09 08:46 | DI.CT.S_ITS ---
PROCEDURE: CT ANGIO HEAD AND NECK INDICATIONS: TIA vs CVA TECHNIQUE: After the administration of intravenous contrast, 1 mm thick sections acquired from the aortic arch through the [place] of [place]. Post-contrast 4.5 mm thick sections then re-acquired from the foramen magnum to the vertex. 3-dimensional [id number] (MIP) and/or volume rendering reformats were acquired of the central intracranial vasculature and neck separately. COMPARISON: [facility], , MR STROKE, 06/09/2021, 10:01. FINDINGS: Image quality: Excellent. BRAIN: The ventricular system and cortical sulci demonstrate atrophy, consistent for the patient's stated age. There are areas of hypodensity within the periventricular and subcortical white matter. There is no acute intra-or extra axial fluid collection. No acute hemorrhage, mass lesion or midline shift. Brainstem is unremarkable. Globes are symmetrical. Sinuses are aerated. Osseous structures are intact. HEAD CT ANGIOGRAPHY: Anterior circulation: Intracranial internal carotid arteries are normal in size and flow. The flow within the paired anterior cerebral arteries is normal and symmetric. The flow within the middle cerebral arteries is normal and symmetric. The anterior communicating artery is seen. No aneurysms are seen. Posterior circulation: Visualized portions of the vertebral arteries demonstrate normal caliber, and join to form a normal appearing basilar artery. Flow within the posterior cerebral arteries is normal and symmetric. No aneurysms are seen. NECK CT ANGIOGRAPHY: The origins of the left and right common, internal and external carotid arteries demonstrate no areas of hemodynamically significant stenosis, vascular occlusion or aneurysmal dilation. Origins of the left and right vertebral arteries demonstrate no areas of hemodynamically significant stenosis, vascular occlusion or aneurysmal dilation. Aortic arch demonstrates conventional anatomy. Limited, visualized portions of the subclavian vasculature are unremarkable. Ascending thoracic aorta measures 3.7 cm. IMPRESSION: 1. No acute intracranial process. 2. Mild atrophy and chronic microvascular ischemic changes. 3. No areas of hemodynamically significant stenosis, vascular occlusion or aneurysmal dilation within the anterior circulation. 4. No areas of hemodynamically significant stenosis, vascular occlusion or aneurysmal dilation within the neck vasculature. Any quantitative measurements of stenosis were performed using NASCET criteria. Dictated by: Rachel Whitlock M.D. on 06/09/2021 at 11:50 Approved by: Rachel Whitlock M.D. on 06/09/2021 at 12:04
--- NOTE | 2021-06-09 08:47 | DI.MRI.S_ITS ---
PROCEDURE: MR CERVICAL SPINE WO/W CON INDICATIONS: neck pain, cervical radiculopathy, right occiput swelling TECHNIQUE: Noncontrast sagittal T1 spin echo and T2 fast spin echo, sagittal STIR, foraminal oblique sagittal T2 fast spin echo, axial gradient echo or T2 fast spin echo through the cervical spine. After the administration of contrast, axial and sagittal T1 spin echo with fat saturation through the cervical spine. COMPARISON: None. FINDINGS: Image quality: Excellent. Alignment and curvature: Straightening of the normal cervical lordosis may be related to muscle spasm or positioning. Vertebral body height alignment is otherwise maintained Marrow: Degenerative endplate changes noted throughout the exam particularly at C4-5 Spinal cord: Visualized spinal cord has normal size and signal. No cerebellar tonsillar herniation. No abnormal intramedullary enhancement. Paraspinous soft tissues: No paravertebral masses or suspicious enhancement. C2-3: Disc height is preserved. No central foraminal stenosis. Mild left hypertrophic facet joint. C3-4: Minimal disc height loss noted. Hypertrophic right uncovertebral joint results in moderate foraminal stenosis. No central or left foraminal stenosis. C4-5: Severe disc space narrowing, degenerative endplate changes and anterior osteophyte present with hypertrophic left uncovertebral joint resulting in moderate central stenosis and flattening the ventral surface of the cord. Moderate bilateral foraminal stenosis greater on the left. C5-6: Severe disc space narrowing and posterior disc osteophyte complex present with focal disc protrusion paracentral to the left results in moderate central stenosis and cord indentation without cord edema or gliosis. Severe right and moderate left foraminal stenosis present. C6-7: Moderate disc space narrowing and posterior focal central disc protrusion with indentation of the ventral surface of the cord. No cord edema present. Moderate left and mild right foraminal stenosis. C7-T1: Moderate disc space narrowing and posterior disc osteophyte complex with mild central stenosis. No foraminal stenosis. IMPRESSION: 1. Multilevel degenerative disc disease and arthropathy resulting in varying degrees of central and foraminal stenosis including moderate central stenosis with cord flattening and indentation at C4-5 and C5-6. 2. No cord edema or gliosis. No abnormal enhancement throughout the exam. Approved by: Gumaro Correa M.D. on 06/09/2021 at 10:31
[2021-06-09] MEDS: ASPIRIN EC 81 MG TABLET PO (09:33)
[2021-06-09] MEDS: ACETAMINOPHEN 325 MG TABLET 650 MG PO (10:53)
--- NOTE | 2021-06-09 12:17 | CM.IDA ---
Initial DCP Assessment Note Patient is a 70 yo female, resident of [place]. Patient arrives with numbness/tingling right side/head/arm and getting medical w/u today to include head CT, brain MRI, echo, head/neck CTA, cervical spin MRI. Medical POC unfolding; Dr Bird anticipates patient may be able to DC home pending results of these studies. PCP: Sheila Mistry Payer: [facility]/[place] Met w/patient and spouse, introduced role. Patient sitting up in chair, just returned from her MRI, in good spirits. Patient/spouse awaiting medical POC to unfold. Patient/spouse indp. at baseline, expect no DC planning needs from this SPORTS INFORMATION DIRECTOR but are appreciative of the visit. Contact information left in case any needs arise before DC. Plan: DC likely home w/family when medically cleared. PRIMO Christian Discharge Planning/Care Management CM Discharge Assessment Start: 06/09/21 11:37 Freq: Status: Active Protocol: Document 06/09/21 11:37 STEFAN (Rec: 06/09/21 12:17 STEFAN [id number]) Discharge Planning Assessment Assigned Acid Tester PRIMO Torres DPOA/Assigned Designee Name Lazaro Moreno, spouse Contact Information [phone] Advance Directives? No History Provided By Patient,Significant Other Prior Living Arrangements House Household Members spouse Type of transportation used prior to Drives own vehicle admit Independent with ADL's Yes Is patient alert and oriented? Yes Barriers to Discharge No Comment Not at this time Discharge Plan Home Transportation Arrangement Family Referrals Initiated None needed Additional Comment At this time Whiteboard Updated in Patient Room with Yes name and ext. # of Acid Tester
--- NOTE | 2021-06-09 12:55 | P.DS_ITS ---
History of Present Illness History of Present Illness Chief complaint: numbness/tingling right side/head/ arm Narrative: Per Gabbi Bañuelos: Patient is a 70-year-old female Ina Moreno with a history of migraine headaches and Crohn's disease presented today with 2 episodes of right-sided facial numbness and tingling that radiated into her right arm.? She said she had a 1st episode will getting her hair cut around noon yesterday.? It lasted for about 30 minutes.? In the personal lines agent hours she was sitting watching TV on her computer and getting ready to go to bed when she noticed she again had right-sided facial numbness and tingling.? She says both times it starts on her face then radiated into her right arm.? She denies weakness, visual changes, difficulty swallowing, altered speach, or headache.? She has says this is certainly not typical of her migraines.? She denies chest pain, palpitations shortness of breath, abdominal pain, loss of consciousness, recent illness injury or trauma.? No difficulty walking.? Symptoms have now resolved.? No previous history of TIAs, stroke , or heart attack. Upon admit patient's vitals are stable temp 98?, BP 151/80, HR 75, RR 23, O2 saturation 99% on room air.? Patient has a mild bump and her WBC 11.1, neutrophils 8200, chemistries are all within normal limits only a mild elevation in alk-phos 142.? NIH score: 0? personally reviewed EKG normal sinus rhythm with a ventricular rate of [address] or T-wave changes.? Patient's head CT demonstrated no acute intracranial processes at this time.? Patient admitted for TIA Discharge Providers Provider Date of admission: 06/09/21 03:24 Discharge Date: 06/09/21 Primary care physician: Sheila Mistry MD Discharge provider: Colin Bird MD Summary Hospital Course Discharge Diagnosis: 1. Cervical stenosis 2. Possible TIA 3. Crohn's disease 4. Chronic migraines 5. Obesity, BMI 39.5 Hospital Course: Ms. Moreno was admitted with right face and arm numbness that was transient. She was worked up as a stroke, for which ultimately, CT head, CT angio head/neck, and MRI head were negative. However she also noted she had neck stiffness and therefore had MRI of C-spine which showed moderate canal stenosis. Her neurologic symptoms resolved. Case was discussed with orthopedic surgery who recommended outpatient follow up. She was referred to Dr. Nolasco for further evaluation and given strict precautions that worsening neurologic symptoms s hould prompt reevaluation. Exam Vital Signs (past 8 hours): Oxygen Delivery Method Room Air Oxygen Flow Rate 0 Narrative Exam Narrative: General:?no acute distress PULM:? clear bilaterally Cardio:? regular rate and rhythm without murmurs Abdomen:? Soft nontender, negative for organomegaly, normal bowel sounds Neuro:? Alert and orientated, strength normal bilaterally in upper and lower extremities Objective Labs Result Diagrams: 06/09/21 04:55 06/09/21 02:05 [facility] Medical History Crohn's colitis Migraine headache Surgical History (Updated 06/09/21 @ 04:33 by RODDY Peter) History of knee replacement Family History Mother Crohn's disease Father Cancer Social History household members: spouse Smoking Status: Never smoker alcohol intake: current Discharge Plan Discharge Plan Patient Disposition: Home Provider Discharge Comment: Ms. Moreno came in with right sided arm and facial numbness. This resolved in the hospital. She has neck pain and tenderness. Stroke evaluation was done and she had no evidence of stroke. She was feeling back to her normal. She did have stenosis of her spine which is likely causing these issues and will be referred to orthopedic/spine surgeon for further evaluation. She also was found to have a likely patent foramen ovale and should follow up with her PCP with this. She will be discharged on aspirin and atorvastatin to reduce risk of stroke. Discharge orders & Medications Prescriptions: New atorvastatin [Lipitor] 20 mg Tablet 40 mg PO BEDTIME Qty: 30 RF: 0 aspirin 81 mg Tablet,Delayed Release (Dr/Ec) 81 mg PO DAILY Qty: 30 RF: 0 Continued desipramine 50 MG tablet 50 mg PO HS Qty: 0 RF: 0 omega 9-bjf-zbt-fish oil [Fish Oil] 1,000 MG capsule 1,000 units PO DAILY Qty: 0 RF: 0 cholecalciferol (vitamin D3) 5,000 UNIT capsule 1,000 unit PO QDAY Qty: 0 RF: 0 pantoprazole 40 mg tablet,delayed release (DR/EC) 40 mg PO DAILY RF: 0 budesonide 3 mg capsule,delayed,extend.release 9 mg PO DAILY RF: 0 Follow up/Referrals: Sheila Mistry MD [Primary Care Provider] - Raudel Nolasco MD [Physician] - (please follow up in 1-2 weeks, parasthesias in face and R arm found to have moderate central canal stenosis and severe foraminal stenosis at c4-c5 and c5-c6) Diet/Activity/Treatments Diet: Diet as Tolerated Discharge Data Primary Care Provider: Sheila Mistry Attending Provider: Gabbi Bañuelos VTE Deep Vein Thrombosis/Pulmonary Embolism Present on Admission: No MIPS - DC The patient has current or prior documentation of left ventricular ejection fraction (LVEF) less than 40%, or moderate or severely depressed left ventricular systolic function.: No
--- NOTE | 2021-06-09 17:56 | PC.NURSE ---
Patient discharged at 16:05 in stable condition, spouse present. Discharge instructions reviewed with patient. Patient transported to car via wheelchair by HOSPITAL RECEIVING CLERK.
== END 2021-06-09 16:05 | disposition home or self-care (01) ==
LOC: ED 03:24 → AC 03:25
PROVIDERS: Admitting Provider Nurse Practitioner Family; Emergency Provider Emergency Medicine; Family Provider Family Medicine; PCP Family Medicine; Referring Provider Emergency Medicine; Visit Provider Nurse Practitioner Family
DX: M48.02 Spinal stenosis, cervical region (principal); R20.0 Anesthesia of skin; K50.90 Crohn's disease, unspecified, without complications; G43.909 Migraine, unspecified, not intractable, without status migrainosus; E66.9 Obesity, unspecified; Z68.39 Body mass index [BMI] 39.0-39.9, adult; Z20.822 Contact with and (suspected) exposure to COVID-19
CPT/HCPCS: 36415; 70450; 70496; 70498; 70548; 70553; 72156; 80053; 80061; 81003; 82550; 83880; 84484; 85025; 85610; 87635; 93005; 93010; 93306; 94760; 99284; 99285; C9803; G0378; Q9967

== ENCOUNTER → 2022-04-27 10:29 | Outpatient (CLI) | payer MEDICARE, OTHER, SELFPAY ==
[2021-06-09 03:29] VITALS: BMI 39.3
[2022-04-27 11:03] LABS: COVID19 -Nasal RAPID Negative (Negative)
--- NOTE | 2022-04-28 11:56 | PM.TREADMILL ---
Cardiac Stress Test Report Referral & Results Date Patient Seen: 04/28/22 Time Patient Seen: 11:56 Requesting provider: Cici Beck Indication: Atherosclerotic heart disease Rest ECG: Sinus tachycardia Procedure Note: Standard Jerome protocol, 3:59 minutes; 4.1 METS Reduced exercise capacity, SARTHAK +26% Accelerated heart rate response. Hypertensive at baseline No chest pain or anginal symptoms No significant ECG changes at peak exercise No ectopy Impression: Normal exercise stress test Mibi images pending Please note: Actual ECG tracings can be found in the PACS system.
--- NOTE | 2022-04-28 18:02 | DI.NM.S_ITS ---
DATE OF SERVICE: 04/27/2022 PROCEDURE PERFORMED: Exercise treadmill stress and rest myocardial perfusion imaging with gating to assess ejection fraction and regional wall motion. ORDERING PROVIDER: Dr. Cici Beck. INDICATIONS: The patient is a 71-year-old female with paroxysmal atrial fibrillation and coronary artery calcification noted on radiography. CARDIAC STRESS: The patient was able to exercise for 3 minutes, 59 seconds on a standard Jerome protocol, suggesting moderately reduced exercise capacity with an SARTHAK of +26%, achieving 7.0 METs. She had an accelerated heart rate response to exercise with a resting heart rate of 110 BPM, increasing to a maximum of 149 BPM (101% of her predicted maximum). She had a moderate hypertensive blood pressure response to exercise with a resting blood pressure 160/98, increasing to a maximum of 230/120. She had no anginal pain. Her resting ECG shows sinus tachycardia with normal ST segments. There were no significant ST-segment shifts or arrhythmias with stress. At 2 minutes, 45 seconds of exercise at a heart rate of 134 BPM, 25.6 millicuries of technetium-99m Myoview was injected. She was imaged 10 minutes later using a gated SPECT acquisition protocol. The day prior while at rest, she had been injected with 25.8 millicuries of technetium-99m Myoview and was imaged 20 minutes later, again using a gated SPECT acquisition protocol. FINDINGS: 1. Raw data: There is fair myocardial tracer uptake with mild breast shadows noted. The lung/heart ratio is normal at 0.26 with a normal TID ratio of 0.70. 2. Quantitated gated SPECT: Post-stress ejection fraction is estimated at 69% without any focal wall motion abnormalities. Resting ejection fraction is estimated at 60% with a normal resting end-diastolic volume of 88 mL. 3. Myocardial perfusion imaging: Post-stress supine images shows a fairly normal myocardial perfusion pattern, supported by normal perfusion imaging in the prone position without any perfusion defects. The resting images show a similar perfusion pattern without any areas of improvement. IMPRESSION: 1. Normal myocardial perfusion study. 2. No evidence of myocardial ischemia or previous myocardial infarction. 3. Normal left ventricular systolic function without any focal wall motion abnormality. 4. Moderately impaired exercise capacity with an accelerated heart rate response to exercise and a hypertensive blood pressure response to exercise but no ECG changes of ischemia. She remained in sinus rhythm without any arrhythmias. Ina Moreno - Abraham doc#: [id number]/job#: [id number] dd: 04/28/2022 16:31:00 dt: 04/28/2022 17:51:00 DICTATING /COPIES TO: Kolby Cavazos MD COPIES MNE: ALEX;
== END ==
PROVIDERS: Family Provider Family Medicine; PCP Physician Assistant; Referring Provider Internal Medicine Cardiovascular Disease; Visit Provider Internal Medicine Cardiovascular Disease
DX: I25.10 Atherosclerotic heart disease of native coronary artery without angina pectoris (principal); I48.0 Paroxysmal atrial fibrillation; Z20.822 Contact with and (suspected) exposure to COVID-19
CPT/HCPCS: 78452; 87635; 93017; A9502

== ENCOUNTER → 2022-05-04 13:48 | Outpatient (CLI) | payer MEDICARE, OTHER, SELFPAY ==
[2021-06-09 03:29] VITALS: BMI 39.3
--- NOTE | 2022-05-04 13:49 | DI.CT.S_ITS ---
PROCEDURE: CT ABDOMEN PELVIS W CON INDICATIONS: CROHNS DISEASE,ABDOMINAL PAIN/NAUSEA TECHNIQUE: After the administration of intravenous contrast, axial sections acquired from the lung bases to the pubic symphysis. Coronal and sagittal reformats were performed. For radiation dose reduction, the following was used: automated exposure control, adjustment of mA and/or kV according to patient size. COMPARISON: None. FINDINGS: Image quality: Excellent. Lung bases: Unremarkable. Heart: No significant findings. ABDOMEN: Liver: Unremarkable. Gallbladder: Unremarkable. Biliary ducts: Unremarkable. Pancreas: Unremarkable. Spleen: Unremarkable. Adrenal Glands: Unremarkable. Kidneys and Ureters: Right kidney is unremarkable. No hydronephrosis, nephrolithiasis, or hydroureter. A nonobstructing 3 mm calculus is present in the lower pole of the left kidney. There are likely low-density left pararenal cysts. Stomach and Bowel: Stomach, small bowel loops, and colon are unremarkable. There are extensive sigmoid diverticula. No evidence for diverticulitis. The appendix is thin walled. Peritoneum: No abnormal intraperitoneal fluid. No free air. Ventral Wall: No hernias. Abdominal Nodes: No retroperitoneal or mesenteric adenopathy by size criteria. Vessels: Aorta and inferior vena cava are normal in size. There are scattered atheromatous calcifications throughout the aorta and iliac arteries bilaterally. PELVIS: Pelvic Organs: Unremarkable. Bladder: Unremarkable. Pelvic Nodes: No enlarged lymph nodes. Miscellaneous: No hernias are seen. Bones: There are bilateral displaced L5-S1 pars interarticularis defects and grade 1 anterolisthesis. IMPRESSION: 1. No acute intra-abdominal findings. Normal appendix. Extensive sigmoid colon diverticulosis. No acute diverticulitis. 2. No discrete inflammatory changes of the bowel to suggest active Crohn's disease. 3. L5-S1 spondylolysis and spondylolisthesis. Dictated by: Therese Valentino M.D. on 05/04/2022 at 16:54 Approved by: Therese Valentino M.D. on 05/04/2022 at 16:58
== END ==
PROVIDERS: Family Provider Family Medicine; PCP Physician Assistant; Referring Provider Physician Assistant; Visit Provider Physician Assistant
DX: K50.90 Crohn's disease, unspecified, without complications (principal); K57.30 Diverticulosis of large intestine without perforation or abscess without bleeding; M43.07 Spondylolysis, lumbosacral region; R10.13 Epigastric pain; R11.0 Nausea; N20.0 Calculus of kidney
CPT/HCPCS: 74177

== ENCOUNTER → 2022-05-17 10:15 | Outpatient (CLI) | payer MEDICARE, OTHER, SELFPAY ==
[2021-06-09 03:29] VITALS: BMI 39.3
[2022-05-17 11:43] LABS: Add Manual Diff / Slide Review NO; Basophils Absolute Auto 100 /uL (0-100); Basophils Percent Auto 0.7 % (0-2); Eosinophils Absolute Auto 200 /uL (0-450); Eosinophils Percent Auto 1.8 % (2-4); Hematocrit 40.6 % (36-46); Hemoglobin 13.5 g/dL (12.0-16.0); Lymphocytes Absolute Auto 1900 /uL (1100-4500); Lymphocytes Percent Auto 15.7 % (25-40); Mean Corpuscular HGB Conc 33.4 % (30-36); Mean Corpuscular Hemoglobin 27.4 PG (26-34); Mean Corpuscular Volume 82.2 fL (80-100); Monocytes Absolute Auto 800 /uL (0-900); Monocytes Percent Auto 6.8 % (3-14); Neutrophils Absolute Auto 9100 /uL (1500-7000); Platelet Count 261 X10^3/uL (150-400); Red Blood Cell Count 4.94 X10^6/uL (4.0-5.2); Red Cell Distribution Width 15.1 % (11.6-14.8); White Blood Cell Count 12.1 X10^3/uL (4.5-11.0)
[2022-05-17 12:02] LABS: Alanine Aminotransferase 21 IU/L (<35); Albumin 3.8 g/dL (3.5-5.0); Albumin Globulin Ratio 1.5 (1.0-2.8); Alkaline Phosphatase 102 U/L (38-126); Aspartate Aminotransferase 18 IU/L (14-36); BUN Creatinine Ratio 23.5 (6-22); Bilirubin Total 0.9 mg/dL (0.2-1.3); Blood Urea Nitrogen 19 mg/dL (7-17); C-Reactive Protein Quant 0.9 mg/dL (<1.0); Carbon Dioxide 31 mmol/L (22-32); Chloride 104 mmol/L (98-107); Estimated Glomerular Filt Rate > 60 mL/min (>60); Globulin 2.5 g/dL (1.7-4.1); Glucose 94 mg/dL (80-110); HEMOLYSIS < 15 (0-50); Potassium 4.1 mmol/L (3.4-5.1); Sodium 139 mmol/L (137-145); Total Protein 6.3 g/dL (6.3-8.2)
== END ==
PROVIDERS: Family Provider Family Medicine; PCP Physician Assistant; Referring Provider Physician Assistant; Visit Provider Physician Assistant
DX: K50.10 Crohn's disease of large intestine without complications (principal)
CPT/HCPCS: 36415; 80053; 85025; 86140

== ENCOUNTER → 2022-06-28 10:03 | Outpatient (CLI) | payer MEDICARE, OTHER, SELFPAY ==
[2021-06-09 03:29] VITALS: BMI 39.3
[2022-06-28 10:20] LABS: Add Manual Diff / Slide Review NO; Basophils Absolute Auto 0 /uL (0-100); Basophils Percent Auto 0.5 % (0-2); Eosinophils Absolute Auto 200 /uL (0-450); Eosinophils Percent Auto 2.6 % (2-4); Hematocrit 40.3 % (36-46); Hemoglobin 13.6 g/dL (12.0-16.0); Lymphocytes Absolute Auto 1400 /uL (1100-4500); Lymphocytes Percent Auto 14.5 % (25-40); Mean Corpuscular HGB Conc 33.7 % (30-36); Mean Corpuscular Hemoglobin 27.5 PG (26-34); Mean Corpuscular Volume 81.6 fL (80-100); Monocytes Absolute Auto 800 /uL (0-900); Neutrophils Absolute Auto 7200 /uL (1500-7000); Neutrophils Percent Auto 74.4 % (50-75); Platelet Count 243 X10^3/uL (150-400); Red Blood Cell Count 4.94 X10^6/uL (4.0-5.2); Red Cell Distribution Width 14.7 % (11.6-14.8); White Blood Cell Count 9.7 X10^3/uL (4.5-11.0)
[2022-06-28 10:33] LABS: Alanine Aminotransferase 20 IU/L (<35); Albumin 3.9 g/dL (3.5-5.0); Albumin Globulin Ratio 1.4 (1.0-2.8); Alkaline Phosphatase 124 U/L (38-126); Aspartate Aminotransferase 23 IU/L (14-36); BUN Creatinine Ratio 22.8 (6-22); Bilirubin Total 0.8 mg/dL (0.2-1.3); Blood Urea Nitrogen 18 mg/dL (7-17); C-Reactive Protein Quant 1.4 mg/dL (<1.0); Calcium 9.1 mg/dL (8.4-10.2); Carbon Dioxide 26 mmol/L (22-32); Chloride 105 mmol/L (98-107); Estimated Glomerular Filt Rate > 60 mL/min (>60); Globulin 2.8 g/dL (1.7-4.1); Glucose 90 mg/dL (80-110); HEMOLYSIS < 15 (0-50); Potassium 4.1 mmol/L (3.4-5.1); Sodium 140 mmol/L (137-145); Total Protein 6.7 g/dL (6.3-8.2)
== END ==
PROVIDERS: Family Provider Family Medicine; PCP Physician Assistant; Referring Provider Physician Assistant; Visit Provider Physician Assistant
DX: K50.10 Crohn's disease of large intestine without complications (principal)
CPT/HCPCS: 36415; 80053; 85025; 86140

== ENCOUNTER → 2022-10-18 09:38 | Outpatient (CLI) | payer MEDICARE, OTHER, SELFPAY ==
[2021-06-09 03:29] VITALS: BMI 39.3
[2022-10-18 10:37] LABS: Add Manual Diff / Slide Review NO; Basophils Absolute Auto 0 /uL (0-100); Basophils Percent Auto 0.3 % (0-2); Eosinophils Absolute Auto 200 /uL (0-450); Eosinophils Percent Auto 2.7 % (2-4); Hematocrit 41.6 % (36-46); Hemoglobin 13.7 g/dL (12.0-16.0); Lymphocytes Absolute Auto 1600 /uL (1100-4500); Lymphocytes Percent Auto 17.8 % (25-40); Mean Corpuscular HGB Conc 32.9 % (30-36); Monocytes Absolute Auto 700 /uL (0-900); Monocytes Percent Auto 7.6 % (3-14); Neutrophils Absolute Auto 6500 /uL (1500-7000); Neutrophils Percent Auto 71.6 % (50-75); Platelet Count 246 X10^3/uL (150-400); Red Blood Cell Count 5.27 X10^6/uL (4.0-5.2); Red Cell Distribution Width 15.6 % (11.6-14.8); White Blood Cell Count 9.1 X10^3/uL (4.5-11.0)
[2022-10-18 10:53] LABS: Alanine Aminotransferase 21 IU/L (<35); Albumin 4.1 g/dL (3.5-5.0); Albumin Globulin Ratio 1.6 (1.0-2.8); Alkaline Phosphatase 117 U/L (38-126); Aspartate Aminotransferase 21 IU/L (14-36); BUN Creatinine Ratio 27.5 (6-22); Bilirubin Total 0.7 mg/dL (0.2-1.3); Blood Urea Nitrogen 19 mg/dL (7-17); C-Reactive Protein Quant 0.7 mg/dL (<1.0); Calcium 9.3 mg/dL (8.4-10.2); Carbon Dioxide 28 mmol/L (22-32); Chloride 102 mmol/L (98-107); Estimated Glomerular Filt Rate > 60 mL/min (>60); Globulin 2.5 g/dL (1.7-4.1); Glucose 95 mg/dL (80-110); HEMOLYSIS < 15 (0-50); Potassium 4.3 mmol/L (3.4-5.1); Sodium 138 mmol/L (137-145); Total Protein 6.6 g/dL (6.3-8.2)
== END ==
PROVIDERS: Family Provider Family Medicine; PCP Physician Assistant; Referring Provider Physician Assistant; Visit Provider Physician Assistant
DX: K50.10 Crohn's disease of large intestine without complications (principal)
CPT/HCPCS: 36415; 80053; 85025; 86140

== ENCOUNTER → 2022-12-06 09:08 | Outpatient (CLI) | payer MEDICARE, OTHER, SELFPAY ==
[2021-06-09 03:29] VITALS: BMI 39.3
[2022-12-06 09:48] LABS: Add Manual Diff / Slide Review NO; Basophils Absolute Auto 0 /uL (0-100); Basophils Percent Auto 0.4 % (0-2); Eosinophils Absolute Auto 200 /uL (0-450); Eosinophils Percent Auto 2.5 % (2-4); Hemoglobin 13.4 g/dL (12.0-16.0); Lymphocytes Absolute Auto 1600 /uL (1100-4500); Lymphocytes Percent Auto 18.2 % (25-40); Mean Corpuscular HGB Conc 32.6 % (30-36); Mean Corpuscular Hemoglobin 26.3 PG (26-34); Mean Corpuscular Volume 80.6 fL (80-100); Monocytes Absolute Auto 700 /uL (0-900); Monocytes Percent Auto 8.5 % (3-14); Neutrophils Absolute Auto 6000 /uL (1500-7000); Neutrophils Percent Auto 70.4 % (50-75); Platelet Count 229 X10^3/uL (150-400); Red Blood Cell Count 5.08 X10^6/uL (4.0-5.2); White Blood Cell Count 8.5 X10^3/uL (4.5-11.0)
[2022-12-06 10:00] LABS: BUN Creatinine Ratio 25.7 (6-22); Blood Urea Nitrogen 19 mg/dL (7-17); Calcium 9.1 mg/dL (8.4-10.2); Carbon Dioxide 29 mmol/L (22-32); Chloride 101 mmol/L (98-107); Estimated Glomerular Filt Rate > 60 mL/min (>60); Glucose 97 mg/dL (80-110); HEMOLYSIS < 15 (0-50); Sodium 137 mmol/L (137-145)
[2022-12-06 10:11] LABS: Appearance Urine UA CLEAR; Bilirubin Urine UA NEGATIVE (NEGATIVE); Color Urine UA YELLOW; Glucose Urine UA NEGATIVE (Negative); Ketones Urine UA NEGATIVE (NEGATIVE); Leukocyte Esterase Urine UA NEGATIVE (NEGATIVE); Nitrite Urine UA NEGATIVE (Negative); Occult Blood Urine UA NEGATIVE (Negative); Protein Urine UA NEGATIVE (Negative)
[2022-12-06 11:04] LABS: Bacteria Urine Occasional (0-1); Culture Indicated Urine Cult Not Indicated; RBC Urine 0-1/HPF (0-5/HPF); Squamous Epithelial Cell Urine 0-1 /HPF (0-5/HPF); WBC Urine None Seen (0-5/HPF)
== END ==
PROVIDERS: Family Provider Family Medicine; PCP Physician Assistant; Referring Provider Orthopaedic Surgery; Visit Provider Orthopaedic Surgery
DX: Z01.818 Encounter for other preprocedural examination (principal); R73.9 Hyperglycemia, unspecified; Z01.812 Encounter for preprocedural laboratory examination; N39.0 Urinary tract infection, site not specified
CPT/HCPCS: 36415; 80048; 81001; 83036; 85025; 93005; 93010

== ENCOUNTER 2022-12-22 11:42 | Observation (INO) | payer MEDICARE, OTHER, SELFPAY ==
[2021-06-09 03:29] VITALS: BMI 39.3
[2022-12-05 09:44] VITALS: BMI 39.4
[2022-12-21] VITALS (11 sets, daily range): BP systolic 119–151; BP diastolic 61–85; PULSE 77–95; RESP 12–21; TEMP 36.2–36.9; O2SAT 92–98; BMI 39.4
--- NOTE | 2022-12-21 07:35 | DI.RAD.S_ITS ---
PROCEDURE: XR KNEE RT 1TO2V INDICATIONS: TOTAL KNEE REPLACEMENT TECHNIQUE: 2 view(s) of the knee acquired. COMPARISON: [facility], , KNEE 1-2 VIEWS LEFT, 11/13/2017, 10:38. FINDINGS: Bones: Patient is status post knee joint arthroplasty. Hardware components are in expected positions. Visualized bony structures are intact. Soft tissues: Overlying postoperative changes are noted. IMPRESSION: Expected appearance of the right total knee arthroplasty. Dictated by: Carlitos Jacobs M.D. on 12/21/2022 at 16:19 Approved by: Carlitos Jacobs M.D. on 12/21/2022 at 16:19
[2022-12-21 12:50] LABS: COVID19 -Nasal RAPID Negative (Negative)
[2022-12-21] MEDS: ACETAMINOPHEN 325 MG TABLET 975 MG PO (13:09)
[2022-12-21] MEDS: CELECOXIB 200 MG CAPSULE PO (13:09)
[2022-12-21] MEDS: LACTATED RINGERS 1,000 ML 42 ML IV (13:10)
[2022-12-21] MEDS: VANCOMYCIN 1,000 MG/200 ML PIGGYBACK 200 MG IV (13:11)
--- NOTE | 2022-12-21 13:33 | PM.PREOP ---
Pre-operative Note Interval Note History & Physical reviewed/Exam performed by Physician: Yes Changes to H&P: No
[2022-12-21] MEDS: TRANEXAMIC ACID 1,000 MG VIAL 2000 MG INJ ×2 (14:00→15:37)
[2022-12-21] MEDS: CEFAZOLIN 2 GM/100 ML PREMIX 100 ML IV ×2 (14:00→20:20)
--- NOTE | 2022-12-21 14:16 | SUR.OPER ---
Supine on padded OR bed, head on pillow, arms secured on padded arm boards at <90 degrees abduction, legs uncrossed, safety belt at abdomen, tape over blanket over lower left leg. DeMayo used to secure right leg
[2022-12-21] MEDS: BUPIVACAINE 0.25% (PF) 60 ML, EPINEPHrine 0.3 MG INJ (14:51)
[2022-12-21] MEDS: BUPIVACAINE LIPOSOME 266 MG/20 ML VIAL INJ (14:52)
--- NOTE | 2022-12-21 15:50 | P.OP_ITS ---
Operative Date/Time/Diagnoses Date of procedure: 12/21/22 Time of procedure: 14:00 Pre-op diagnosis: right knee OA Post-op diagnosis: same Procedure & Clinicians Procedure: Right total knee arthroplasty Same procedure as scheduled: Yes Indications: The patient has had progressively worsening right knee pain with radiographic changes consistent with arthritis. Non-operative management has failed and the patient has requested total knee replacement. The risks, benefits and alternatives to surgery were discussed with the patient prior to proceeding. Risks discussed included, but were not limited to, failure to relieve pain, stiffness, infection, nerve damage, deep venous thrombosis, pulmonary embolism, stroke, coma, heart attack, permanent paralysis and , as well as the potential need for eventual revision of the prosthetic. Surgeon: Savannah Sepulveda Scientific Software Developer: Jose Drew Anesthesia Type: Spinal Operative Notes Findings: Severe right knee osteoarthritis especially in the lateral compartment, adequate stability, adequate bone Closure Type: primary Specimen(s): none sent Prosthetic devices, grafts, tissues, transplants, or devices: Sepulveda and Nephew R3 size 35 patella, size 4 femur, size 4 tibia, +10 poly Estimated Blood Loss (mL): 250 Blood products transfused: none Tourniquet time (min): 83 Procedure in detail: The patient was seen in the pre-operative area, where the patient identified the right knee as the operative site and this was marked with my initials. The patient received pre-operative antibiotics, and was taken to the operating room and placed on the operative table in the supine position. After satisfactory anesthesia, a manager multimedia out was performed. The right leg was encircled with a tourniquet about the proximal thigh, and the leg was prepared from the toes to the tourniquet with ChloroPrep in the usual fashion and draped through sterile drapes. The leg was elevated and exsanguinated with Eschmark bandage and the tourniquet inflated to [250] mmHg pressure. The knee was approached through an approximately 18 cm incision centered over the patella and carried into the knee through a medial parapatellar arthrotomy. A portion of the medial and lateral meniscus was resected. Soft tissue was carefully mobilized around the patella the patella was measured with a caliper. Bone was resected from the patella and the patellar height was reconstituted with up an appropriate sized patellar component. A cover was then placed on the patella. A small amount of additional medial and lateral meniscus was resected. The distal femur was cut at 5?. A [+2] cut was used. It looked like an appropriate distal femoral cut and the cut was made without difficulty. An extramedullary guide was used for the tibial cut. 10 mm was resected off the least affected side.The tibia was prepared. The rotation was assessed. The patient was placed in extension residual medial and lateral meniscus as well as any residual bone was carefully resected. [No] additional tibia was resected. Hemostasis was achieved especially posteriorly. Additional local was injected into the posterior capsule. The extension gap was assessed and additional releases for gap balancing were performed as necessary. It was checked with the gap worker's compensation claims examiner. The femoral component was trial was placed and the notch was finished. The rotation was assessed and the appropriate size femoral guide was placed on the distal femur and finishing cuts were made. There is no evidence of notching. The anterior, posterior and chamfer cuts were then made. The posterior osteophytes and soft tissues were then removed. The posterior capsule was injected with part of a mixture of 60 ml 0.25% Marcaine mixed with 20 ml Exparel for post operative pain control. The remainder of this mixture was injected into the capsule and subcutaneous tissues during cement curing.l tibial and femoral components were then placed and the knee placed through a range of motion. Range of motion was [0-130], with good stability throughout the range. The trials were then removed, and the tibia was finished. The bone was prepared with pulsatile lavage, and dried with a sponge. Cement was applied and the final prosthetics placed. Excess cement was removed during and after cement curing. A brief Betadine soak was performed. After confirming there was no extruded cement posteriorly, the final tibial insert was placed. The knee was copiously irrigated and the tourniquet deflated. Hemostasis was obtained with the Aquacel. The capsule was closed with interrupted nonabsorbable suture. The subcutaneous layer was closed with barbed sutures, and the skin with a running 3-0 V-Lock suture and Surgical glue. An Aquacel Ag dressing was applied and the patient was taken to recovery having tolerated the procedure well. Complications: none Post-operative Condition: stable Disposition: Acute Care Plan for aftercare: The patient will be maintained on a standard total knee replacement protocol with weight bearing as tolerated. The patient will receive Eliquis starting Sunday and sequential compression devices for DVT prophylaxis. The patient will be discharged home when safe for the home environment.
[2022-12-21] MEDS: OXYCODONE IR 5 MG TABLET PO (16:24)
[2022-12-21] MEDS: ACETAMINOPHEN 325 MG TABLET 650 MG PO ×2 (17:25→20:20)
[2022-12-21] MEDS: LACTATED RINGERS 1,000 ML 100 ML IV (17:25)
[2022-12-21] MEDS: IBUPROFEN 400 MG TABLET PO ×2 (17:25→20:17)
[2022-12-21] MEDS: OXYCODONE IR 10 MG TABLET PO ×2 (18:24→21:25)
[2022-12-21] MEDS: DOCUSATE 100 MG CAPSULE PO (20:18)
[2022-12-21] MEDS: ATORVASTATIN 20 MG TABLET 40 MG PO (20:18)
[2022-12-21] MEDS: METOPROLOL IR 50 MG TABLET PO (20:18)
[2022-12-22] MEDS: OXYCODONE IR 10 MG TABLET PO ×2 (00:17→14:00)
[2022-12-22] MEDS: IBUPROFEN 400 MG TABLET PO ×4 (00:17→13:19)
[2022-12-22] MEDS: HYDROMORPHONE 1 MG INJ (00:57)
[2022-12-22] MEDS: hydrOXYzine pamoate 25 MG CAPSULE PO (01:10)
[2022-12-22] MEDS: HYDROMORPHONE 2 MG TABLET PO (03:18)
[2022-12-22 03:19] VITALS: BP 125/43; PULSE 88; RESP 18; TEMP 35.9; O2SAT 95
[2022-12-22] MEDS: ACETAMINOPHEN 325 MG TABLET 650 MG PO ×2 (06:37→13:20)
[2022-12-22] MEDS: CEFAZOLIN 2 GM/100 ML PREMIX 100 ML IV (06:38)
[2022-12-22 07:00] VITALS: O2SAT 95
[2022-12-22 07:13] LABS: Hemoglobin 11.3 g/dL (12.0-16.0)
[2022-12-22 08:00] VITALS: BP 108/53; PULSE 75; RESP 17; TEMP 36.2; O2SAT 95
--- NOTE | 2022-12-22 09:09 | P.DS_ITS ---
History of Present Illness History of Present Illness Date Patient Seen: 12/22/22 Time Patient Seen: 09:09 Chief complaint: Right Total Knee Arthroplasty 12/21 Narrative: Patient is awake lying in bed comfortably this morning. She notes that she had a rough night and experienced extreme pain, though this was addressed and she is having very little pain now. She is looking forward to working with physical therapy today and hopefully going home if everything goes well. Denies chest pain, shortness of breath, numbness, tingling in the distal extremities. Discharge Providers Provider Discharge Date: 12/22/22 Primary care physician: Juli Orr PA-C Consults: 12/06/22 15:16 Consult to Anesthesiology Routine Comment: Consulting Provider: Anesthesiologist Reason for consultation: Surgeon requested re: Multiple medical issues 12/21/22 07:35 Consult to Anesthesiology Routine Comment: Consulting Provider: Anesthesiologist Reason for consultation: Regional block for post operative pain control 12/21/22 16:59 Consult to Discharge Planning Routine Comment: Consult to Physical Therapy Evaluate & Treat Comment: Physician Instructions: postop TKA protocol Discharge provider: Mckayla Hastings PA-C Summary Hospital Course Discharge Diagnosis: Status post right total knee arthroplasty Hospital Course: Operative Date/Time/Diagnoses Date of procedure: 12/21/22 Time of procedure: 14:00 Pre-op diagnosis: right knee OA Post-op diagnosis: same Procedure & Clinicians Procedure: Right total knee arthroplasty Same procedure as scheduled: Yes Indications: The patient has had progressively worsening right knee pain with radiographic changes consistent with arthritis. Non-operative management has failed and the patient has requested total knee replacement. The risks, benefits and alternatives to surgery were discussed with the patient prior to proceeding. Risks discussed included, but were not limited to, failure to relieve pain, stiffness, infection, nerve damage, deep venous thrombosis, pulmonary embolism, stroke, coma, heart attack, permanent paralysis and , as well as the potential need for eventual revision of the prosthetic. Surgeon: Savannah Sepulveda Brewing Director: Jose Drew Anesthesia Type: Spinal Operative Notes Findings: Severe right knee osteoarthritis especially in the lateral compartment, adequate stability, adequate bone Closure Type: primary Specimen(s): none sent Prosthetic devices, grafts, tissues, transplants, or devices: Sepulveda and Nephew R3 size 35 patella, size 4 femur, size 4 tibia, +10 poly Estimated Blood Loss (mL): 250 Blood products transfused: none Tourniquet time (min): 83 Status at Discharge Cognitive/behavioral status at discharge: oriented Functional status at discharge: uses cane/walker Overall status at discharge: patient is progressing back to baseline Exam Vital Signs (past 8 hours): - 12/22/22 03:19 12/22/22 08:00 Temperature 96.7 F L 97.1 F L Pulse Rate 88 75 Respiratory Rate 18 17 Blood Pressure 125/43 L 108/53 L Pulse Oximetry 95 95 Oxygen Flow Rate 3 2 Fraction of Inspired Oxygen 28 SaO2/FiO2 Ratio 335 Oxygen Delivery Method Nasal Cannula Oxygen Flow Rate 2 Narrative Exam Narrative: Pleasant 72-year-old female. Awake, alert, and oriented. Intraoperative Aquacel dressing clean and intact with dime-sized blood spot on distal dressing. Elias bandage intact. Strength and sensation to bilateral lower extremities intact. Bilateral calves soft, compressible, nontender with no palpable cords or masses. SCDs on. Objective Labs 12/22/22 06:50 Labs: Laboratory Results - last 24 hr 12/21/22 12/22/22 12:20 06:50 Hgb 11.3 L Hct 34.0 L SARS-CoV-2 (PCR) Negative [facility] Medical History Crohn's colitis Edema History of COVID-19 (10/2021) HLD (hyperlipidemia) HTN (hypertension) Migraine headache Osteoarthritis PAF (paroxysmal atrial fibrillation) Pancreatitis Suspected sleep apnea Surgical History History of total left knee replacement (10/2017) Hx of dilation and curettage (~1976) Hx of tonsillectomy Family History Mother Crohn's disease Father Cancer Social History household members: spouse Smoking Status: Never smoker alcohol intake: current Discharge Assessment & Plan Assessment and Plan Assessment: Patient is progressing as expected after right total knee arthroplasty. She has had intermittent pain which has been well controlled with medication. Plan of Treatment: Plan to work with physical therapy today. If all goes well she may discharge to home with her . Plan to restart Eliquis on 12/23/2022. Patient received postop pain medications at her preoperative visit and she states she has some at home. She will follow up as scheduled 2 weeks after surgery. Discharge Plan Discharge Plan Patient Disposition: Home Provider Discharge Comment: Discharge once cleared by Physical therapy Discharge orders & Medications Discharge Orders: Discharge (Order); Ordered 12/22/22 Ordered By: Mckayla Hastings Prescriptions: Continued desipramine 50 MG tablet 50 mg PO HS Qty: 0 omega 0-ich-hfs-fish oil [Fish Oil] 1,000 MG capsule 1,000 units PO DAILY Qty: 0 cholecalciferol (vitamin D3) 5,000 UNIT capsule 1,000 unit PO QDAY Qty: 0 metoprolol tartrate 50 mg Tablet 50 mg PO BEDTIME hydrochlorothiazide 12.5 mg Tablet 12.5 mg PO QAM Eliquis 5 mg Tablet 5 mg PO BID Entyvio 300 mg Recon Soln 300 mg IV Q8W Rx Instructions: administer over 30 mins acetaminophen 650 mg Tablet Extended Release 1,300 mg PO DAILY PRN (Reason: Pain) pantoprazole 40 mg tablet,delayed release (DR/EC) 40 mg PO DAILY atorvastatin [Lipitor] 20 mg Tablet 40 mg PO BEDTIME Qty: 30 0RF Follow up/Referrals: Juli Orr PA-C [Primary Care Provider] - Savannah Sepulveda MD [Physician] - As previously scheduled (Follow up w/ Lashanda Hastings PA-C, on 01/05/2023 @ 2:30 pm at [facility] office in [place].) Diet/Activity/Treatments Diet: Diet as Tolerated Activity: Walk frequently! Cold/Heat Therapy: Ice to knee as needed for pain. Skin/Wound/Dressing Care Report to your healthcare provider any signs of infection, such as:: chills, fever, night sweats, unusual drainage and unusual redness Dressing: May remove ELIAS wrap and shower on 12/24/2022. Visit Report/Discharge Packet Instructions: DI for Knee Replacement Stand Alone Forms: Patient Portal/API, Surgery Discharge Discharge Data Primary Care Provider: Juli Orr Attending Provider: Savannah Sepulveda
[2022-12-22] MEDS: DOCUSATE 100 MG CAPSULE PO (09:21)
[2022-12-22] MEDS: hydroCHLOROthiazide 25 MG TABLET 12.5 MG PO (09:21)
[2022-12-22] MEDS: FISH OIL 1,000 MG CAPSULE 1000 MG PO (09:22)
[2022-12-22] MEDS: PANTOPRAZOLE DR 40 MG TABLET PO (09:25)
[2022-12-22] MEDS: CHOLECALCIFEROL (VITAMIN D3) 1,000 UNIT TABLET 1000 UNIT PO (10:33)
--- NOTE | 2022-12-22 12:36 | CM.DANOTE ---
Initial DCP Assessment Note Pt is a 72 yo female, resident of [place], now POD#1 Status post right total knee arthroplasty by DR Sepulveda PCP: Juli Orr Payer: [facility] Reviewed chart, patient has been discharged home by Ortho ECTOR Hastings this morning. Patient eager to return home after a challenging evening r/t pain management. Patient has planned for spouse to assist w/outpatient PT follow up Awaiting PT eval and recs before discharge home, likely today. No CM team needs expected PRIMO Christian Discharge Planning/Care Management CM Discharge Assessment Start: 12/22/22 12:33 Freq: Status: Active Protocol: Document 12/22/22 12:33 STEFAN (Rec: 12/22/22 12:35 STEFAN [id number]) Discharge Planning Assessment Assigned Feather Separator PRIMO Reynaga DPOA/Assigned Designee Name Lazaro () Contact Information [phone] Advance Directives? No History Provided By Patient,Significant Other, Medical Record Prior Living Arrangements House Household Members spouse Type of transporation used prior to Drives own vehicle admit Independent with ADL's Yes Is patient alert and oriented? Yes Barriers to Discharge No Comment Not at this time Discharge Plan Home Transportation Arrangement Family Referrals Initiated None needed Additional Comment At this time
--- NOTE | 2022-12-22 13:04 | PT.IIE ---
Current Diagnoses Unilateral primary osteoarthritis, right knee (12/22/22) Surgery Performed Operation Date: 12/21/22 14:15 Actual Procedures p Total Knee Arthroplasty(Right) - Savannah Sepulveda MD Surgical History (Last Reviewed 12/22/22 @ 09:13 by Mckayla Hastings PA-C) History of total left knee replacement (10/2017) Hx of dilation and curettage (~1976) Hx of tonsillectomy Medical History (Last Reviewed 12/22/22 @ 09:13 by Mckayla Hastings PA-C) Crohn's colitis Edema History of COVID-19 (10/2021) HLD (hyperlipidemia) HTN (hypertension) Migraine headache Osteoarthritis PAF (paroxysmal atrial fibrillation) Pancreatitis Suspected sleep apnea Physical Therapy Inpatient Evaluation/Re-Eval M1 PT/OT-IP Prior Functional Status Start: 12/22/22 09:09 Freq: NEEDED Status: Active Protocol: Document 12/22/22 09:53 AMB (Rec: 12/22/22 10:23 AMB [id number]) Medical Review Prior Functional Status Medical History Reviewed Yes Communication WFL Social History Household Members spouse Living Arrangements House Number of Stairs To Enter/Railing? 2 no railings- pt states they are platform stairs and can use Home Environment High Toilet,Walk in Shower Home Equipment Front Wheel Walker Employment Status Retired M2 PT-IP Current Condition Start: 12/22/22 09:09 Freq: NEEDED Status: Active Protocol: Document 12/22/22 09:53 AMB (Rec: 12/22/22 10:23 AMB [id number]) Physical Therapy Current Condition Current Condition Evaluation Date 12/22/22 Treatment Diagnosis R TKA Onset Date 12/21/22 M3 PT-IP Subjective Start: 12/22/22 09:09 Freq: NEEDED Status: Active Protocol: Document 12/22/22 09:53 AMB (Rec: 12/22/22 10:23 AMB [id number]) Subjective Physical Therapy Visit Type Type Initial Evaluation Visit Start Time 09:15 Visit Stop Time 09:50 Total Visit Minutes 35 Therapy Pain Assessment Pain When Pain Assessed At Rest Pain Present Pain Present Denied Pain M4 PT-IP Mobility and Gait Start: 12/22/22 09:09 Freq: NEEDED Status: Active Protocol: Document 12/22/22 09:53 AMB (Rec: 12/22/22 10:23 AMB [id number]) PT-Bed Mobility Assessment Rolling Type of Rolling Roll to Left Level of Assist Standby Assistance Supine to Sit Supine to Sit Standby Assistance,Head of Bed Elevated Sit to Supine Sit to Supine Standby Assistance,1 Person Assistance,Head of Bed Elevated PT-Transfer Assessment Sit to and From Stand Sit to and from Stand Contact Guard Assistance,1 Person Assistance,Use of Upper Extremities Equipment Transfer Assistive Device Gait Belt Transfers Transfer Destination Bed,Chair,Toilet,Wheelchair Transfer Technique Stand Step Pivot Transfer Ability Level of Assist Contact Guard Assistance Comments Mobility Comments Ina was in bed and able to perform bed mobility with SBA. CGA for transfers from bed, toilet, and w/c. Gait Assessment Gait Gait Assistance Required: Contact Guard Assist,1 Person Assist Distance (Feet) 50 Assistive Devices Assistive Device Gait Belt,Front Wheeled Walker Gait Deviations General Gait Pattern Antalgic,Decreased Stride Length Comments Gait Comments On room air, Ina had SpO2 of 90%, with gait around her room it stayed between 89 and 93%. CGA with FWW. Stair Climbing Assessment Evaluation Level of Assist On Stairs Contact Guard Assistance Devices Stair Climbing Assistive Devices Left Railing,Right Railing Technique/Endurance Stair Climbing Direction Ascend and Descend Stair Climbing Technique Step to Step Number of Steps Climbed 3 Query Text: Stair Climbing Set # Repetitions (reps) 2 Comments Stair Climbing Comments Then did platform step with FWW CGA, step to gaitx2. SpO2 dropped to 85 on room air with mask. Encouraged pt in deep breathing and increased to 89. M5 PT-IP Objective Assessments Start: 12/22/22 09:09 Freq: NEEDED Status: Active Protocol: Document 12/22/22 09:53 AMB (Rec: 12/22/22 10:23 AMB [id number]) Orientation Orientation/Cognition Level of Alertness Alert Gross Range of Motion Lower Extremity ROM Assessment Right Impaired Strength Lower Extremity Strength Assessment Right Impaired M6 PT-IP Treatment Start: 12/22/22 09:09 Freq: NEEDED Status: Active Protocol: Document 12/22/22 09:53 AMB (Rec: 12/22/22 10:23 AMB [id number]) Physical Therapy Treatment Exercises Exercises Ankle Pumps Education Education Provided Precautions,Weight Bearing Status,Post-Op Packet,Safety M7 PT-IP Assessment and Plan Start: 12/22/22 09:09 Freq: NEEDED Status: Active Protocol: Document 12/22/22 09:53 AMB (Rec: 12/22/22 10:23 AMB [id number]) PT Summary Assessment and Plan Potential Rehabilitation Potential Good Status of Condition at Evaluation Evolving Summary Impairments Pain,ROM,Strength,Balance,Gait Assessment Summary Ina is doing well, but on room air her SpO2 dropped with activity. At lowest was 85, but did come up with breathing and rest. Pt was able to ambulate around room carefully with FWW and CGA. She does have 2 steps to enter her home and stairs were when her O2 dropped the most significantly . Nursing made aware of O2 saturation. Goals Bed Mobility Goal Independent Transfer Goal Standby Assistance Gait Goal Standby Assistance Gait Distance 200 Other Goals Stairs 2 platform stairs Days to Meet Goals 3 Frequency of Treatment Frequency Of Treatment Twice a Day Treatment Plan Physical Therapy Treatment Plan Bed Mobility Training,Transfer Training,Gait Training, Therapeutic Exercise,Balance Retraining,Post Op Education Other Recommendations and Next Treatment Review exercises, assess pt's Focus O2 status with being up/gait on room air. Recommendations To Nursing Amount of Assist Needed 1 Person Assist Discharge Recommendations PT Discharge Recommendations Home with Assistance, Outpatient PT Transportation Needs at Discharge Private Vehicle
--- NOTE | 2022-12-22 14:26 | PC.NURSE ---
Pt is A&OX4, She is initally on 2 LNC. She reports pain to R knee is very minimal. Elias wrap c/d/i, aquacel intact. RLE +CMS, and she is able to ambulate with SBA and FWW to BR and participate with PT. She is able to ambulate in the cheung and perform stairs. Her 02 saturation on RA drops to 85% although she denies SOB. Her 02 sats return to 92 % on RA at rest. She is encouraged to use her IS and continued to do this while on RA. Patient is reassessed this afternoon upon ambulating a lap around the RN station Her 02 sat on RA is 92% and she denies SOB. Per her request she is medicated with prn oxycodone 10 mg after ambulating this aftenoon for pain 7/10 and tightness in R calf. She verbalizes understanding of discharge activity limitations, medications, s/sx of infection/complications as well as site care and follow up appointment with ortho in 10-14 days. She is escorted via w/ch with , FWW and all of her belongings to private vehicle for discharge home this afternoon.
== END 2022-12-22 15:30 | disposition home or self-care (01) ==
LOC: OR 11:43 → AC 11:43
PROVIDERS: Admitting Provider Orthopaedic Surgery; Family Provider Family Medicine; PCP Physician Assistant; Referring Provider Orthopaedic Surgery; Visit Provider Orthopaedic Surgery
PROC: 0SRC0JZ Replacement of Right Knee Joint with Synthetic Substitute, Open Approach (ICD-10-PCS; CPT 27447; principal; 2022-12-21 14:15)
DX: M17.11 Unilateral primary osteoarthritis, right knee (principal); Z20.822 Contact with and (suspected) exposure to COVID-19
CPT/HCPCS: 27447; 36415; 73560; 85014; 85018; 87635; 94760; 97162; C1776; C9803; G0378; A9270; C9290; J0171; J0690; J1100; J1170; J2405; J2704

== ENCOUNTER 2023-02-06 11:12 | Emergency (ER) | payer MEDICARE, OTHER, SELFPAY ==
[2022-12-21 17:32] VITALS: BMI 39.4
[2023-02-06 11:27] VITALS: BP 171/80; PULSE 70; RESP 20; TEMP 36.4; O2SAT 96; BMI 36.6
--- NOTE | 2023-02-06 11:40 | DI.US.S_ITS ---
PROCEDURE: US PERIPH VENOUS LOW EXTREM LT INDICATIONS: PAIN/SWELLING/LOSS ROM AFTER STANDING TODAY. S/P TKA. TECHNIQUE: Real-time imaging, as well as color and pulse Doppler interrogation, were performed of the lower extremity deep veins from the inguinal ligament to the popliteal fossa. COMPARISON: None. FINDINGS: The common femoral, femoral and popliteal veins are normally compressible, and free of intraluminal thrombus. Color and pulse Doppler demonstrate normal phasic intraluminal flow. There is normal augmentation response to distal compression maneuver. Large knee joint effusion. Abreu's cyst with irregular margins. IMPRESSION: No DVT. Large left knee joint effusion. Dictated by: Carlitos Jacobs M.D. on 02/06/2023 at 11:29 Approved by: Carlitos Jacobs M.D. on 02/06/2023 at 11:31
[2023-02-06] MEDS: OXYCODONE IR 5 MG TABLET PO (11:53)
[2023-02-06] MEDS: LORazepam 0.5 MG TABLET 1 MG PO (12:50)
--- NOTE | 2023-02-06 14:50 | DI.RAD.S_ITS ---
PROCEDURE: XR KNEE RT 3V INDICATIONS: knee pain, arge effusion, 6 weeks post knee replacement TECHNIQUE: 3 views of the knee were acquired. COMPARISON: [facility], CR, XR KNEE RT 1TO2V, 12/21/2022, 16:03. [facility], CR, KNEE 1-2 VIEWS LEFT, 11/13/2017, 10:38. [facility] [place], CR, XR KNEE 4+ VIEWS RIGHT, 01/05/2023, 14:10. FINDINGS: Bones: A right knee arthroplasty is in similar position compared to prior. Patellar resurfacing. Soft tissues: Large joint effusion. IMPRESSION: Hardware appears to be in similar position. There is however a large joint effusion. This is larger than prior imaging. Consider sampling if clinically indicated, versus cross-sectional imaging or nuclear medicine bone scan. Dictated by: Faustino Dominguez M.D. on 02/06/2023 at 16:04 Approved by: Faustino Dominguez M.D. on 02/06/2023 at 16:06
[2023-02-06] MEDS: OXYCODONE/ACETAMINOPHEN 5/325 TABLET 1 TAB PO (15:29)
[2023-02-06 16:35] VITALS: BP 167/80; PULSE 90; RESP 18; O2SAT 95
--- NOTE | 2023-02-12 19:46 | ED.EXTPRO ---
HPI - Extremity Problem <Heydi Alcocer PA-C - Last Filed: 02/12/23 20:01> General Chief complaint: Extremity Problem,Nontraumatic Stated complaint: blood clot/pain in rt leg; sent from [facility] Time Seen by Provider: 02/06/23 11:56 Source: patient and family Mode of arrival: Wheelchair History of Present Illness HPI Narrative: 72-year-old female status post a total knee arthroplasty on December 21 presents to the ED with right lower leg pain. Patient states that she went to physical therapy, they noted the leg pain and sent her to the ED to rule out a DVT. Patient denies any recent trauma including falls or injuries. Patient is on Eliquis. Patient denies chest pain, shortness of breath, fever, chills, numbness, tingling, weakness. Related Data Home Medications Medication Instructions Recorded Confirmed desipramine 50 mg tablet 50 mg PO HS Migraine ##0 10/29/17 12/21/22 cholecalciferol (vitamin D3) 125 1,000 unit PO QDAY ##0 11/13/17 12/21/22 mcg (5,000 unit) capsule omega [id number] oil 1,000 mg 1,000 units PO DAILY ##0 11/13/17 12/21/22 (120 mg-180 mg) capsule (Fish Oil) pantoprazole 40 mg tablet,delayed 40 mg PO DAILY 06/09/21 12/21/22 release acetaminophen 650 mg 1,300 mg PO DAILY PRN Pain 12/05/22 12/21/22 tablet,extended release apixaban 5 mg tablet (Eliquis) 5 mg PO BID 12/05/22 12/21/22 hydrochlorothiazide 12.5 mg tablet 12.5 mg PO QAM 12/05/22 12/21/22 metoprolol tartrate 50 mg tablet 50 mg PO BEDTIME 12/05/22 12/21/22 vedolizumab 300 mg intravenous 300 mg IV Q8W Crohn's Disease 12/05/22 12/21/22 solution (Entyvio) Previous Rx's Medication Instructions Recorded atorvastatin 20 mg tablet (Lipitor) 40 mg PO BEDTIME #30 tabs 06/09/21 oxycodone-acetaminophen 5 mg-325 1 tab PO Q6H PRN pain #14 tabs 02/06/23 mg tablet (Percocet) Allergies Allergy/AdvReac Type Severity Reaction Status Date / Time Sulfa (Sulfonamide AdvReac Severe MAKES ME Verified 02/06/23 11:36 Antibiotics) SUPER [SULFA (SULFONAMIDE HYPER ANTIBIOTICS)] Review of Systems <Heydi Alcocer PA-C - Last Filed: 02/12/23 20:01> Review of Systems ROS Unobtainable: All systems reviewed & are unremarkable except as noted in HPI and below Constitutional Constitutional: Denies chills, Denies fatigue, Denies fever(s), Denies frequent falls, Denies lethargy and Denies weakness Eyes Eyes: Denies change in vision, Denies eye discharge, Denies irritation and Denies loss of vision ENT Ears, Nose, Mouth, and Throat: Denies change in voice, Denies dizziness, Denies neck pain, Denies sore throat and Denies throat swelling Cardiovascular Cardiovascular: Denies chest pain, Denies irregular heart rhythm, Denies lightheadedness, Denies palpitations, Denies dyspnea, Denies dyspnea on exertion and Denies orthopnea Respiratory Respiratory: Denies cough, Denies dyspnea, Denies dyspnea on exertion and Denies wheezing Gastrointestinal Gastrointestinal: Denies abdominal pain, Denies change in bowel habits, Denies diarrhea, Denies nausea and Denies vomiting Genitourinary Genitourinary: Denies hematuria, Denies flank pain, Denies urinary incontinence and Denies urinary urgency Musculoskeletal Musculoskeletal: Denies back pain, Denies muscle weakness, Denies neck pain, Denies numbness and Denies tingling Comments: Right knee pain Integumentary/Breasts Skin/Breast: Denies pruritus, Denies erythema, Denies rash and Denies wounds Neurologic Neurologic: Denies behavioral changes, Denies confusion, Denies dizziness, Denies frequent falls, Denies loss of vision, Denies numbness, Denies tingling and Denies weakness Psychiatric Psychiatric: Denies anxiety, Denies behavioral changes, Denies confusion, Denies depression, Denies homicidal ideation and Denies suicidal ideation Endocrine Endocrine: Denies fatigue, Denies flushing and Denies palpitations Hematologic/Lymphatic Hematologic/Lymphatic: Denies easy bruising Allergic/Immunologic Allergic/Immunologic: Denies urticaria, Denies throat swelling and Denies wheezing Patient History <Heydi Alcocer PA-C - Last Filed: 02/12/23 20:01> Medical History Crohn's colitis Edema History of COVID-19 (10/2021) HLD (hyperlipidemia) HTN (hypertension) Migraine headache Osteoarthritis PAF (paroxysmal atrial fibrillation) Pancreatitis Suspected sleep apnea Surgical History History of total left knee replacement (10/2017) Hx of dilation and curettage (~1975) Hx of tonsillectomy Family History Mother Crohn's disease Father Cancer Social History household members: spouse Smoking Status: Never smoker alcohol intake: current Smoking Status: Never smoker alcohol intake frequency: a few times a week Substance Use Type: does not use Exam <Heydi Alcocer PA-C - Last Filed: 02/12/23 20:01> Narrative Exam Narrative: Const General:?cooperative, healthy appearing and comfortable HENMT Head:?normal to inspection Ears:?hearing grossly normal bilaterally Nose:?external nose normal Face and sinus:?normal facial exam and sinuses nontender Mouth:?oral mucosae normal Throat:?posterior oropharynx normal Eyes General:?appearance normal, both eyes and all related structures Neck Neck:?normal visual inspection and no lymphadenopathy noted Resp Effort & Inspection:?normal respiratory effort Auscultation:?clear to auscultation bilaterally Cardio Rate:?regular rate Rhythm:?regular rhythm Musculoskeletal Right lower leg with palpable Abreu cyst. There is some swelling, tenderness to palpation. There is limited range of motion of the right knee. Strength and sensation is intact. Patient is neurovascularly intact. Neuro General:?patient alert, patient awake and patient oriented x3 Initial Vital Signs Initial Vital Signs: Vital Signs Temperature 97.6 F 02/06/23 11:27 Pulse Rate 70 02/06/23 11:27 Respiratory Rate 20 02/06/23 11:27 Blood Pressure 171/80 H 02/06/23 11:27 Pulse Oximetry 96 02/06/23 11:27 Oxygen Delivery Method Room Air 02/06/23 11:27 Const General: cooperative HENWA Head: normocephalic and atraumatic Ears: external ears normal and TM's normal bilaterally Nose: external nose normal and No nasal discharge Face and sinus: sinuses nontender, face symmetric, no sinus tenderness and No dry mucous membranes Mouth: oral mucosae normal and moist mucous membranes Teeth and gingiva: dentition normal Throat: tonsils normal and uvula midline Eyes General: Yes appearance normal, both eyes and all related structures Eyelids: eyelids normal Conjunctivae: conjunctivae normal Sclera: sclerae normal Pupils: PERRL EOM: EOM intact bilaterally Neck Neck: normal visual inspection, trachea midline, No lymphadenopathy, No midline deformity and No JVD Lymphatic: No lymphedema Chest Chest: normal inspection of the chest Resp Effort & Inspection: normal respiratory effort, able to speak in complete sentences, no respiratory distress and no use of accessory muscles Auscultation: clear to auscultation bilaterally, no rales, no rhonchi and no wheezes Cardio Rate: regular rate Rhythm: regular rhythm Heart Sounds: no click, no gallops, no murmurs and no rubs Pulses: normal peripheral pulses GI Inspection: non-distended Palpation: soft, no hepatosplenomegaly, No guarding, No pulsatile mass and No tender Auscultation: normal bowel sounds Back/Spine/Pelvis Back: No CVA tenderness Cervical Spine: cervical ROM normal and No pain with cervical ROM Thoracic/Lumbar Spine: thoracic and lumbar spine normal to inspection Skin General: no rashes or lesions noted, No jaundice and No petechiae Neuro General: patient alert, patient oriented x3, gait normal and no focal motor deficits Speech: speech normal Extrem General: full ROM, no clubbing, cyanosis or edema, no pedal edema and no calf tenderness Psych Appearance: well kempt Mental Status: mental status grossly normal Attitude: cooperative Thought Content: normal and suicidality Judgment: judgment good <Lisa Castro DO - Last Filed: 02/14/23 07:30> Initial Vital Signs Initial Vital Signs: Vital Signs Temperature 97.6 F 02/06/23 11:27 Pulse Rate 70 02/06/23 11:27 Respiratory Rate 20 02/06/23 11:27 Blood Pressure 171/80 H 02/06/23 11:27 Pulse Oximetry 96 02/06/23 11:27 Oxygen Delivery Method Room Air 02/06/23 11:27 Course <Heydi Alcocer PA-C - Last Filed: 02/12/23 20:01> Orders Ordered: Discontinued Medications Lorazepam (Lorazepam 0.5 Mg Tablet) 1 mg PO NOW ONE Stop: 02/06/23 12:43 Last Admin: 02/06/23 12:50 Dose: 1 mg Documented By: TREY Oxycodone HCl (Oxycodone Ir 5 Mg Tablet) 5 mg PO NOW ONE Stop: 02/06/23 11:47 Last Admin: 02/06/23 11:53 Dose: 5 mg Documented By: TREY Oxycodone/Acetaminophen (Oxycodone/Acetaminophen 5/325 Tablet) 1 tab PO NOW ONE Stop: 02/06/23 15:18 Last Admin: 02/06/23 15:29 Dose: 1 tab Documented By: TREY <Lisa Castro DO - Last Filed: 02/14/23 07:30> Orders Ordered: Discontinued Medications Lorazepam (Lorazepam 0.5 Mg Tablet) 1 mg PO NOW ONE Stop: 02/06/23 12:43 Last Admin: 02/06/23 12:50 Dose: 1 mg Documented By: TREY Oxycodone HCl (Oxycodone Ir 5 Mg Tablet) 5 mg PO NOW ONE Stop: 02/06/23 11:47 Last Admin: 02/06/23 11:53 Dose: 5 mg Documented By: NR Oxycodone/Acetaminophen (Oxycodone/Acetaminophen 5/325 Tablet) 1 tab PO NOW ONE Stop: 02/06/23 15:18 Last Admin: 02/06/23 15:29 Dose: 1 tab Documented By: NR MDM - Extremity (Nontraumatic) <Heydi Alcocer PA-C - Last Filed: 02/12/23 20:01> [facility] Narrative Medical decision making narrative: 72-year-old female status post a total knee arthroplasty on December 21 presents to the ED with right lower leg pain. Will obtain ultrasound to rule out DVTs, x-rays to rule out fracture/dislocation. X-ray shows no dislocations or fractures but shows a large joint effusion. Ultrasound does not show any DVTs, shows a Abreu cyst and a large left knee joint effusion. Patient's symptoms improved significantly with Percocet and Ativan in the ED. Will prescribe Percocet for 3 days until patient is able to see her orthopedic surgeons. ED return precautions were discussed with patient. Patient verbalized understanding. Medical records reviewed: Yes Discharge Plan Departure Patient Disposition: Home Clinical Impression: Knee pain Instructions: DI for Knee Pain Activity Restrictions/Additional Instructions: You were evaluated in the ED today for right-sided knee pain. The knee x-ray as well as the ultrasound did not show blood clots or fractures or dislocations. It did show a Abreu cyst on the backside of the right knee and some joint effusion. Your symptoms are likely due to a sprain or strain of the knee. You may continue to take ibuprofen, Tylenol, Percocet for your symptoms. You may also apply a knee brace for comfort. Please follow-up with your orthopedic surgeon as soon as possible. Return to the ED if you develop any numbness, tingling, weakness. Prescriptions: New oxycodone-acetaminophen [Percocet] 5-325 mg tablet 1 tab PO Q6H PRN (Reason: pain) Qty: 14 0RF No Action desipramine 50 MG tablet 50 mg PO HS Qty: 0 omega 7-lfu-mjl-fish oil [Fish Oil] 1,000 MG capsule 1,000 units PO DAILY Qty: 0 cholecalciferol (vitamin D3) 5,000 UNIT capsule 1,000 unit PO QDAY Qty: 0 metoprolol tartrate 50 mg Tablet 50 mg PO BEDTIME hydrochlorothiazide 12.5 mg Tablet 12.5 mg PO QAM Eliquis 5 mg Tablet 5 mg PO BID Entyvio 300 mg Recon Soln 300 mg IV Q8W Rx Instructions: administer over 30 mins acetaminophen 650 mg Tablet Extended Release 1,300 mg PO DAILY PRN (Reason: Pain) pantoprazole 40 mg tablet,delayed release (DR/EC) 40 mg PO DAILY atorvastatin [Lipitor] 20 mg Tablet 40 mg PO BEDTIME Qty: 30 0RF Referrals: Juli Orr PA-C [Primary Care Provider] - Stand Alone Forms: Patient Portal/API <Lisa Castro DO - Last Filed: 02/14/23 07:30> Cosign ED Attending Neil Attestation: I was immediately available in the department for consultation. Documentation has been reviewed.
== END 2023-02-06 16:38 | disposition home or self-care (01) ==
PROVIDERS: Emergency Provider Student in an Organized Health Care Education/Training Program; Family Provider Family Medicine; PCP Physician Assistant
DX: M25.561 Pain in right knee (principal); M25.461 Effusion, right knee; Z79.899 Other long term (current) drug therapy
CPT/HCPCS: 73562; 93971; 99283